=== PATIENT | female | born 1965 | race Caucasian/White ===

== ENCOUNTER 2017-09-30 18:18 | Emergency (ER) | payer BC ==
[~2017-09-30] VITALS: Ht 162.6 cm; Wt 78.5 kg
[~2017-09-30 18:18] MED LIST: ADDERALL 5 MG TA5 M1 PO; ADULT WAL-TUSS118 M1 PO; ASPIR 8181 MG PO; BACTRIM DS TAB1 EACH PO; DUONEB 2.5-0.5 M3 ML INH; ESKALITH300 MG PO; GLUCOPHAGE XR500 MG PO; HUMALOG100 UNIT/2; HUMALOG100 UNIT/2 SUBQ; HYDROCODONE-AP1 EAC6; HYDROCODONE-APA1 TA1 PO; IBUPROFEN 600600 M1; LANTUS SUBQ; LANTUS100 UNIT/M; LANTUS100 UNIT/M SUBQ; LIPITOR10 MG PO; LUCENTIS0.3 MG/0.0 IO; LYRICA 50 MG50 MG PO; LYRICA 75 MG CA75 MG; LYRICA 75 MG CA75 MG PO; LYRICA25 MG PO; MACROBID 100 M100 M2 PO; NAPROSYN500 MG PO; NORCO 5-325 TA1 EACH PO; NOVOLOG100 UNIT/1 SUBQ; ONDANSETRON HCL4 M2 PO; PERCOCET PO; PREDNISONE 10 M10 MG PO; PREDNISONE 20 M20 M1 PO; PROPRANOLOL 1010 MG PO; PROTONIX40 M4 PO; TAMIFLU75 MG PO; TESSALON PERLE100 MG PO; TRAZODONE HCL100 MG PO; VALIUM5 MG PO; VENTOLIN HFA 1818 GM INH; WELCHOL 625 MG625 M1 PO; XANAX 0.5 MG0.5 MG PO; ZOFRAN ODT4 MG PO; ZOLOFT100 MG PO
[2017-09-30] MEDS ORDERED: LIORESAL 10 MG10 MG PO (18:35)
[2017-09-30 19:12] LABS: INFLUENZA A ANTIGEN None Detected (None Detect); INFLUENZA B ANTIGEN None Detected (None Detect)
[2017-09-30] MEDS ORDERED: ACETAMINOPHEN-1 EAC1 PO (19:31)
[2017-09-30] MEDS ORDERED: ZPAK PO (19:31)
[2017-09-30] MEDS ORDERED: MEDROLDOSEPACK PO (19:31)
[2017-09-30] MEDS ORDERED: PROAIR HFA8.5 GM INH (19:31)
[2017-09-30] MEDS ORDERED: LEVAQUIN 500 M500 M2 PO (19:36)
[2017-09-30 19:40] VITALS: BP 129/79
[2018-06-21] MEDS ORDERED: KEFLEX500 M1 PO (08:24)
[2018-06-21] MEDS ORDERED: ACETAMINOPHEN-1 EAC1 PO (08:24)
[2018-06-21] MEDS ORDERED: ACYCLOVIR 400400 MG PO (08:24)
[2018-06-21] MEDS ORDERED: NORCO 5-325 TA1 EACH PO (08:24)
[2018-06-21] MEDS ORDERED: DIFLUCAN150 MG PO (08:24)
== END 2017-09-30 19:40 | disposition home or self-care (01) ==
LOC: M.ERS 18:18
PROVIDERS: Physician Assistant
DX: J20.9 Acute bronchitis, unspecified (principal); E11.9 Type 2 diabetes mellitus without complications; N30.90 Cystitis, unspecified without hematuria; J43.9 Emphysema, unspecified; J45.909 Unspecified asthma, uncomplicated; Z98.890 Other specified postprocedural states; Z88.0 Allergy status to penicillin; Z91.030 Bee allergy status; Z88.6 Allergy status to analgesic agent; Z88.1 Allergy status to other antibiotic agents

== ENCOUNTER 2017-10-10 17:14 | Inpatient (IN) | payer BC ==
[~2017-10-10] VITALS: Ht 162.6 cm; Wt 78.5 kg
[~2017-10-10 17:14] MED LIST changes: +ACETAMINOPHEN-1 EAC1 PO; +LEVAQUIN 500 M500 M2 PO; +LIORESAL 10 MG10 MG PO; +MEDROLDOSEPACK PO; +PROAIR HFA8.5 GM INH; +ZPAK PO
[2017-10-10 17:17] VITALS: BP 127/84
[2017-10-10 19:05] LABS: ABSOLUTE BASOPHILS 0.1 thou/uL (0.0-0.2); ABSOLUTE EOSINOPHILS 0.2 thou/uL (0.0-0.7); ABSOLUTE LYMPHOCYTES 3.8 thou/uL (0.8-5.3); ABSOLUTE MONOCYTES 0.5 thou/uL (0.0-1.2); ABSOLUTE NEUTROPHILS 4.4 thou/uL (1.6-8.1); BASOPHILS 0.9 %; EOSINOPHILS 1.7 %; HEMATOCRIT 44.3 % (37.0-47.0); HEMOGLOBIN 14.4 gm/dL (12.0-15.0); LYMPHOCYTES 42.5 %; MCH 29.3 pg (26.0-34.0); MCHC 32.6 g/dL (28.0-37.0); MCV 89.8 fL (80.0-100.0); MONOCYTES 5.9 %; NUCLEATED RBCS 0 /100WBC; PLATELET COUNT* 327 thou/uL (150-400); RBC 4.94 mil/uL (4.20-5.00); RDW-CV 14.4 % (10.5-14.5)
[2017-10-10 19:34] LABS: ANION GAP 9 mmol/L (7-16); BUN 17 mg/dL (7-18); CALCIUM 8.8 mg/dL (8.5-10.1); CHLORIDE 101 mmol/L (98-107); CO2 26 mmol/L (21-32); CREATININE 0.8 mg/dL (0.6-1.3); GLUCOSE 213 mg/dL (70-99); POTASSIUM 3.4 mmol/L (3.5-5.1); SODIUM 136 mmol/L (136-145)
[2017-10-10 19:50] LABS: ALBUMIN 3.5 g/dL (3.4-5.0); ALKALINE PHOSPHATASE 53 U/L (46-116); SGOT 23 U/L (15-37); SGPT 31 U/L (30-65); TOTAL PROTEIN 7.1 g/dL (6.4-8.2); TROPONIN-I LEVEL <0.06 ng/mL (<0.06)
[2017-10-10 20:10] VITALS: BP 127/74
[2017-10-10 21:06] VITALS: BP 128/85
[2017-10-10 23:30] VITALS: BP 103/70
[2017-10-11] VITALS: BP 122/67
[2017-10-11 02:15] LABS: HEMATOCRIT 40.8 % (37.0-47.0); HEMOGLOBIN 13.5 gm/dL (12.0-15.0); MCH 29.4 pg (26.0-34.0); MCHC 33.1 g/dL (28.0-37.0); MCV 88.8 fL (80.0-100.0); MPV 8.4 fl. (7.2-11.1); RBC 4.6 mil/uL (4.20-5.00); RDW-CV 14.3 % (10.5-14.5); WBC 9.7 thou/uL (4.0-11.0)
[2017-10-11 02:28] LABS: ALBUMIN 3.2 g/dL (3.4-5.0); CALCIUM 8.7 mg/dL (8.5-10.1); CREATININE 0.8 mg/dL (0.6-1.3); POTASSIUM 3.5 mmol/L (3.5-5.1); TOTAL BILIRUBIN 0.8 mg/dL (<0.1-1.0); TOTAL PROTEIN 6.1 g/dL (6.4-8.2)
--- NOTE | 2017-10-11 03:54 | NUR ---
PT TO FLOOR AT 2112 ASSUMED CARE. PT HAS CHRONIC PAIN AND GIVEN NORCO FOR PAIN WITH RELIEF. PT A&O X4 CALM COOPERITVE. PT SR ON THE MONITOR. NO FLUID. O2 97 RA. PT REPORTS LEFT SIDE FACE NUMBNESS. VITALS WNL. REPORTS BM 10/09/17. PLAN IS TO HAVE LABS IN AM, MRI SERIES, AND ECCO. VITALS WNL. PT REPORTS UNABLE TO GET RESTFULL SLEEP AT HS. PT ADLIB. HOURLY ROUNDING FOR SAFETY.
[2017-10-11 04:00] VITALS: BP 102/64
[2017-10-11 07:30] VITALS: BP 104/66
[2017-10-11 11:38] VITALS: BP 134/89
--- NOTE | 2017-10-11 11:44 | EKG ---
[place] [address] ELECTROCARDIOGRAM REPORT Name: CORY CARUSO Room: [address] ADM IN ..#: [id number] Admission: 10/10/17 Attend Phys: Claudia Mcdermott Discharge: Date of : 63 Report #: [id number] THIS REPORT FOR: //name// [facility] ED Test Date: 2017-10-10 Test Time: 17:16:46 Pat Name: CORY CARUSO Department: Room: [facility] Gender: F Project Scientist: : 1965 Requested By: Tete Myers Order Number: [id number] MD: Malcolm Sneed Measurements Intervals [place] Rate: 107 P: 34 SD: 138 QRS: -2 QRSD: 90 T: 3 QT: 342 QTc: 457 Interpretive Statements Sinus tachycardia nonspecific st changes Compared to ECG 06/21/2017 20:46:36 Sinus rhythm no longer present Electronically Signed On 10-11-2017 11:44:42 [employer] by Malcolm Sneed [email or web address] <ELECTRONICALLY SIGNED> By: Malcolm Sneed MD, [facility] 10/11/17 1144 15 15 Malcolm Sneed MD, [facility] /EPI
--- NOTE | 2017-10-11 11:57 | NUR ---
CM ASSESSMENT: Pt is A&O. Resides at home with her and children. Independent with ADLs. No DME. No hx of HH or SNF. Goal is to return home once medially stable. Following.
--- NOTE | 2017-10-11 17:15 | CARDNUC ---
[place] [address] CARDIAC NUCLEAR IMAGING REPORT Name: CORY CARUSO Room: [address] IN [facility]#: [id number] Admission: 10/10/17 Attend Phys: Robin Ramos Discharge: Date of : 63 Date of Service: 10/11/17 1714 Report #: [id number] THIS REPORT FOR: //name// APPROVED REPORT Exam: Nuclear Stress Test Indication: Chest pain Patient Location: In-Patient Room #: 207 Stress Tech: Sadia Villagomez Stress Nurse: Gayathri Correa RN Ht: 5 ft 4 in Wt: 173 lbs BSA: 1.84 m2 BMI: 29.69 Medical History Medical History: aortic valve regurgitation Medications: propanolol, aspirin, atovastatin, enoxaparin Allergies: penicillin, erythromycin, cefuroxime,hydromorphone Cardiac Risk Factors: age, pvd, dm Meds Held (24 hrs): propanolol since 1700 10/10/17 Stress Test Details Stress Test: Pharmacologic stress testing performed using 0.4 mg of regadenoson per 5 mL given IV over 10 seconds. Reason for pharmacologic stress test: physical limitation. HR Resting HR: 85 bpm Max Heart Rate (APMHR): 167 bpm Max HR Achieved: 107 bpm Target HR (85% APMHR): 141 bpm % of APMHR: 64 Recovery HR: 112 bpm BP Resting BP: 100/66 mmHg Max BP: 148/101 mmHg ECG Resting ECG: Sinus Rhythm, normal EKG Stress ECG: Sinus Tachycardia ST Change: None Arrhythmia: None Recovery ECG: Sinus Rhythm, normal EKG Recovery ST Change: None Recovery Arrhythmia: [place] [address] CARDIAC NUCLEAR IMAGING REPORT Name: CORY CARUSO Room: [address]#: [id number] Admission: 10/10/17 Attend Phys: Robin Ramos Discharge: Date of : 63 Date of Service: 10/11/17 1714 Report #: [id number] Clinical Reason for Termination: Completed protocol Exercise duration: 0 min sec Exercise capacity: 1 METs Functional Aerobic Impairment 62% The patient had some atypical gastrointestinal symptoms with Lexiscan infusion but no chest pain. Nurse Comments pt had nausea and lower gi problems, resolved wtih caffeine Stress ECG Conclusion The baseline 12 elect cardiac exam showed sinus rhythm without significant ST segment abnormality. EKGs obtained during and post Lexiscan infusion showed sinus rhythm and sinus tachycardia with no significant ST or T wave changes when compared to baseline. There were no stress-induced arrhythmias. NM EXAM: Myocardial Perfusion REST/STRESS Imaging Protocol: Rest Tc-99m/Stress Tc-99m 1 day Resting Data Rest SPECT myocardial perfusion imaging was performed in supine position 30 minutes following the intravenous injection of 12.0 mCi of Tc-99m Sestamibi. Time of rest injection: 1355 Time of rest imagin The images were gated to evaluate regional wall motion and calculate left ventricular ejection fraction. Administration Route: IV Administration Site: Left AC Pharmacologic Stress Pharmacologic stress test was performed by injecting Regadenoson 0.4 mg IV push followed by the intravenous injection of 34.7 mCi of Tc-99m Sestamibi. Time of stress injection: 1530 Time of stress imagin Administration Route: IV Administration Site: Left AC Heart Rate at time of stress injection: 107 bpm. Gated Stress SPECT was performed 40 minutes after stress injection. The images were gated to evaluate regional wall motion and calculate left [place] [address] CARDIAC NUCLEAR IMAGING REPORT Name: CORY CARUSO Room: [address]#: [id number] Admission: 10/10/17 Attend Phys: Robin Ramos Discharge: Date of : 63 Date of Service: 10/11/17 1714 Report #: [id number] Prone imaging was performed. Study Quality Study: Good Artifact: No artifact Study Data At rest, the left ventricular ejection fraction was 69%.. Post stress, the left ventricular ejection was C5%.. TID = 1.23. Perfusion Normal left ventricular perfusion. Wall Motion Normal left ventricular wall motion. Nuclear Conclusion ECG Findings: negative for ischemia Clinical Findings: negative for ischemia Nuclear Findings: negative for ischemia Exercise Capacity: not assessed Left Ventricular Function: normal Risk Study: low Myocardial perfusion images show no defect to suggest infarct or ischemia. Left ventricular systolic function is normal on gated studies. This is a low risk study. <Conclusion> The baseline 12 elect cardiac exam showed sinus rhythm without significant ST segment abnormality. EKGs obtained during and post Lexiscan infusion showed sinus rhythm and sinus tachycardia with no significant ST or T wave changes when compared to baseline. There were no stress-induced arrhythmias. <ELECTRONICALLY SIGNED> By: Russ Blackwood MD, FACC 10/11/17 1714 13 171 Russ Blackwood MD, FACC /INF
--- NOTE | 2017-10-11 17:23 | 2DMMODE ---
[place] [address] 2 D/M-MODE ECHOCARDIOGRAM Name: CORY CARUSO Room: [address] IN [facility]#: [id number] Admission: 10/10/17 Attend Phys: Robin Ramos Discharge: Date of : 63 Date of Service: 10/11/17 1722 Report #: [id number] THIS REPORT FOR: //name// APPROVED REPORT Study performed: 10/11/2017 15:26:23 EXAM: Comprehensive 2D, Doppler, and color-flow Echocardiogram Patient Location: In-Patient Room #: 207 Status: routine BSA: 1.83 HR: 102 bpm BP: 102/64 mmHg Rhythm: NSR Other Information Study Quality: Good Indications Chest Pain 2D Dimensions LVEF(%): 63.39 (>50%) IVSd: 11.40 (7-11mm) LVOT Diam: 18.30 (18-24mm) LVDd: 43.50 mm PWd: 9.41 (7-11mm) Ascending Ao: 34.56 (22-36mm) LVDs: 28.65 (25-40mm) Aortic Root: 32.65 mm Pollack's LVEF: 63.39 % Volumes Left Atrial Volume (Systole) LA ESV Index: 15.20 mL/m2 Aortic Valve AoV Peak David.: 1.41 m/s AO Peak Gr.: 7.97 mmHg LVOT Max P.58 mmHg AO Mean Gr.: 4.23 mmHg LVOT Mean P.22 mmHg LVOT Max V: 1.18 m/s AO V2 VTI: 25.13 cm LVOT Mean V: 0.67 m/s QUE (VTI): 2.28 cm2 LVOT V1 VTI: 21.79 cm Mitral Valve E/A Ratio: 0.74 [place] [address] 2 D/M-MODE ECHOCARDIOGRAM Name: CORY CARUSO Room: [address] IN ..#: [id number] Admission: 10/10/17 Attend Phys: Robin Ramos Discharge: Date of : 63 Date of Service: 10/11/17 1722 Report #: [id number] MV Decel. Time: 122.07 ms MV E Max David.: 0.91 m/s MV PHT: 35.40 ms MVA (PHT): 6.21 cm2 TDI E/Lateral E': 10.11 Lateral E' David.: 0.09 m/s Pulmonary Valve PV Peak David.: 0.91 m/s PV Peak Gr.: 3.32 mmHg Left Ventricle The left ventricle is normal size. There is normal LV segmental wall motion. There is normal left ventricular wall thickness. Left ventricular systolic function is normal. LVEF is 60-65%. Grade I - abnormal relaxation pattern. Right Ventricle The right ventricle is normal size. The right ventricular systolic function is normal. Atria The left atrium size is normal. The right atrium size is normal. Aortic Valve The aortic valve is normal in structure. No aortic regurgitation is present. There is no aortic valvular stenosis. Mitral Valve The mitral valve is normal in structure. There is no mitral valve regurgitation noted. No evidence of mitral valve stenosis. Tricuspid Valve The tricuspid valve is normal in structure. There is no tricuspid valve regurgitation noted. Pulmonic Valve The pulmonary valve is normal in structure. There is no pulmonic valvular regurgitation. Great Vessels The aortic root is normal in size. IVC is normal in size and collapses with >50% [place] [address] 2 D/M-MODE ECHOCARDIOGRAM Name: CORY CARUSO Room: [address] IN [facility]#: [id number] Admission: 10/10/17 Attend Phys: Robin Ramos Discharge: Date of : 63 Date of Service: 10/11/17 1722 Report #: [id number] Pericardium There is no pericardial effusion. <Conclusion> The left ventricle is normal size. There is normal left ventricular wall thickness. Left ventricular systolic function is normal. LVEF is 60-65%. Grade I - abnormal relaxation pattern. <ELECTRONICALLY SIGNED> By: Russ Blackwood MD, FACC 10/11/171721 21 21 Russ Blackwood MD, FACC /INF
[2017-10-11 20:10] VITALS: BP 127/74
[2017-10-12] VITALS (9 sets, daily range): BP systolic 81–132; BP diastolic 47–74
[2017-10-12 00:58] LABS: URINE BILIRUBIN NEGATIVE (Negative); URINE BLOOD NEGATIVE (Negative); URINE CLARITY CLEAR; URINE COLOR YELLOW; URINE GLUCOSE-RANDOM 2+ (Negative); URINE KETONES TRACE (Negative); URINE LEUKOCYTES-REFLEX NEGATIVE (Negative); URINE NITRITE-REFLEX NEGATIVE (Negative); URINE PROTEIN NEGATIVE (Negative); URINE UROBILINOGEN 0.2 E.U./dl (0.2-1.0)
[2017-10-12 02:12] LABS: EBNA-1 IgG >600.0 U/mL (0.0-17.9); EBV EA IgG <9.0 U/mL (0.0-8.9); EBV VCA IgM <36.0 U/mL (0.0-35.9)
--- NOTE | 2017-10-12 06:48 | NUR ---
A&O X4 CALM COOPERITVE. ADLIB. SR ON THE MONITOR. RA. VITALS WNL. HOURLY ROUNDING FOR SAFETY
--- NOTE | 2017-10-12 12:08 | NUR ---
RECEIVED PT CARE 0700. PT IS ALERT AND ORIENTED X4. FORGETFUL AT TIMES. ORTHOSTATICS POSTIVE. DR CARUSO AWARE. NEW ORDERS FOR IVF RECEIVED. PLAN TO DC LOPEZ CATHETER TODAY. PT UP IN ROOM WITH BATHROOM PRIVILEDGES. GAIT IS STEADY. AM ASSESSMENT CHARTED. MEDS PER MAR. TELE DISCONTINUED TODAY, MEDICAL STATUS. HOLDING OFF ON DC TODAY, PLANNING FOR POTENTIAL DC TOMORROW IF STABLE. CALL LIGHT WITHIN REACH. WILL CONTINUE TO MONITOR.
--- NOTE | 2017-10-12 16:54 | NUR ---
REPORT CALLED TO RAFAEL OLIVARES ON 3W. PATIENT TRANSFERRING TO 308. ALL BELONGINGS PACKED AND LEAVING WITH PATIENT.
--- NOTE | 2017-10-12 18:20 | NUR ---
ASSUMED CARE OF PATIENT AT 1730. REPORT RECEIVED FROM GENARO. PATIENT IS RESTING IN BED. PATIENT DENIES ANY PAIN. PATIENT DENIES ANY NEEDS. PATIENT HAS FLUIDS INFUSING ORDERED. CALL LIGHT WITHIN REACH. WILL CONTINUE TO MONITOR.
[2017-10-12 20:18] LABS: INFLUENZA A ANTIGEN None Detected (None Detect); INFLUENZA B ANTIGEN None Detected (None Detect)
[2017-10-13 01:17] VITALS: BP 117/69
[2017-10-13 04:45] LABS: HEMATOCRIT 35.7 % (37.0-47.0); HEMOGLOBIN 12.2 gm/dL (12.0-15.0); MCHC 34.1 g/dL (28.0-37.0); MCV 87.9 fL (80.0-100.0); MPV 8.5 fl. (7.2-11.1); RBC 4.06 mil/uL (4.20-5.00); RDW-CV 13.8 % (10.5-14.5); WBC 10.1 thou/uL (4.0-11.0)
[2017-10-13 05:11] LABS: CALCIUM 8.6 mg/dL (8.5-10.1); CREATININE 0.8 mg/dL (0.6-1.3); POTASSIUM 4.3 mmol/L (3.5-5.1)
--- NOTE | 2017-10-13 06:58 | NUR ---
PT CO NOT BEING ABLE TO VOID AFTER LOPEZ REMOVAL AT START OF SHIFT, BLADDER SCAN 470, DR NOTIFIED AND ORDERS RECEIVED FOR STRAIGHT CATH PRN X2. STRAIGHT CATH RETURNED 450MLS YELLOW URINE AT HS. 0500 PT CO NOT BEING ABLE TO VOID, BLADDER SCAN 950, STRAIGHT CATH PERFORMED RETURNING 1000MLS LITE YELLOW URINE. HS ACCUCHECK 198, LEVEMEIR GIVEN. PT RECEIVING HYDROCODONE FOR GENERALIZED PAIN, ZOFRAN X1 FOR NAUSEA. LFA IVF INFUSING PER PUMP. PT UP AD LOUIE IN ROOM, CO DIZZINESS WHEN AMBULATING AND INSTRUCTED TO ASK FOR ASSISTANCE, BED ALARM ON FOR SAFETY. ABLE TO USE CALL LITE AND MAKE NEEDS KNOWN.
[2017-10-13 08:30] VITALS: BP 112/71
[2017-10-13 08:32] VITALS: BP 89/63
[2017-10-13 08:34] VITALS: BP 65/40
[2017-10-13 15:30] VITALS: BP 111/68
--- NOTE | 2017-10-13 18:13 | NUR ---
RECIEVED PATIENT AT 1500. PATIENT A&OX4, ROOM AIR, IV LEFT FOREARM FLUIDS INFUSSING. UP WITH ASSISTX1 STEADY GAIT. C/O GENERALIZED WEAKNESS, RELIEF WITH MEDICATION. ORTHOSTATIC HYPOTENSION NOTED, INSTRUCTED TO CALL FOR ASSISTANCE WITH TRANSFERS AND AMBULATION. NO OTHER CONCERNS AT THIS TIME. APPROPRAITE AND COOPORATIVE WITH CARE.
[2017-10-13 19:46] VITALS: BP 99/65
[2017-10-13 23:07] LABS: CMV IgM Abs <30.0 AU/mL (0.0-29.9)
--- NOTE | 2017-10-14 06:42 | NUR ---
ASSESSMENT COMPLETE. PT SLEPT PART OF THE NIGHT. PT REPORTS PAIN IN LOWER LEFT ABDOMEN FROM "POLYCYSTIC OVARIES". PAIN MEDICATION AND KPAD GIVEN, RELIEF REPORTED. PT DENIES N/V. PT IS ON ROOM AIR WITH ADEQAUTE SATS. PT HAS IV FLUIDS INFUSING. SKIN W/D/I. PT HAD RETENTION DURING THE NIGHT, BLADDER SCAN THIS AM SHOWED GREATER THAN 800ML. PT STRAIGHT CATH AND HAD 865ML OUTPUT. PT IS UP WITH STANDBY ASSIST. PT TURNS SELF IN BED. PT IS FALL RISK, BED ALARM ON. SEE ASSESSMENT AND VITALS FOR OTHER DETAILS. WILL CONTINUE TO MONITOR
[2017-10-14 07:30] VITALS: BP 118/78
--- NOTE | 2017-10-14 16:40 | NUR ---
PATIENT A&OX4, ROOM AIR, IV LEFT WRIST FLUIDS INFUSSIGN. UP WITH STAND BY ASSISTX1. ORTHOSTATIC HYPOTENSION NOTED, DIZZINESS WITH ACTIVITY. C/O LOWER ABD/PELVIC PAIN. PARTIAL RELIEF WITH MEDICATION. GYNOCOLOGY CONSULT, WILL SEE PATIENT TOMORROW. NO OTHER CONCERNS AT THIS TIME. APPROPRIATE AND COOPORATIVE WITH CARE.
[2017-10-14 18:49] VITALS: BP 98/57
[2017-10-15] VITALS: BP 116/70
--- NOTE | 2017-10-15 05:58 | NUR ---
PATIENT SLEPT WELL DURING THIS SHIFT. PT CALLED AT APPROX 4AM SAYING SHE HAD NOT BEEN ABLE TO VOID ALL NIGHT. APPROX 750ML OF YELLOW URINE NOTED IN HAT IN TOILET. WAS NOTED BY PALPATION THAT BLADDER FELT VERY FULL. PT STRAIGHT CATHED AND 1000ML CLEAR YELLOW URINE WAS DRAINED. PT STATED SHE FELT MUCH BETTER AND WENT BACK TO SLEEP. PT REQUESTED PAIN MEDICATION X3 AND RECEIVED TYLENOL W/CODEINE X2 AND HYDDROCODONE 2 TABS X1. PT ABLE TO RETURNN TO SLEEP AFTERWARDS. PT WITH FLUIDS INFUSING PER DR ORDER. PT IN DROPLET ISOLATION PENDING H1N1 RESULTS. PT WITH 2100 BLOOD SUGAR OF 234. LEVEMIR 36 UNITS AND REGULAR 10 UNITS GIVEN. PT HAD SEVERAL SNACKS THROUGHOUT THE NIGHT OF PUDDING, ICE CREAM AND JUICES. PT ASKED FOR SNACK TOWARDS AM AND WAS SUGGESTED THAT SHE WAIT TILL AM BLOOD SUGAR WAS CHECKED BECAUSE SHE HAD SEVERAL SNACKS ALREADY. PT IN AGREEMENT. FREQUENTLY USED ITEMS AND CALL LIGHT WITHIN REACH. SIDERAILS UPX2. WILL CONTINUE TO MONITOR.
[2017-10-15 07:30] VITALS: BP 121/74
[2017-10-15 17:00] VITALS: BP 113/70
[2017-10-15 19:41] VITALS: BP 116/70
--- NOTE | 2017-10-15 20:25 | NUR ---
PATIENT A&OX4, CAN BE FORGETFUL AT TIMES. ON ROOM AIR, IV LEFT WRIST FLUIDS INFUSSING. IV SITE CHANGE; STILL LEFT WRIST. PATIENT IS UP WITH STAND BY ASSIST, DUE TO ORTHOSTATIC HYPOTENSION, STEADY GIAT. C/O LOWER ABD/PELVIC PAIN, PARTIAL RELIEF WITH MEDICATIONS. C/O URINARY RETENTION, BLADDER SCANNED AT 1230 WITH 820ML IN BLADDER. WAS ABLE TO STRIAGHT CATH PT PRODUCING 840ML OF URINE. PATIENT FEELS RELIEF. PATIEN UNABLE TO URINATE AT 1430, EXPERIANCING RETENTION. LOPEZ CATHETER PLACED AT THIS TIME. PATIENT STATES SHE HAS MUCH RELIEF WITH LOWER ABD/PELVIC AREA. PT C/O CHEST PAIN AT 1700, EKG COMPLETED, NORMAL SINUS. NO OTHER CONCERNS AT THIS TIME. APPROPRIATE AND COOPORATIVE WITH CARE.
--- NOTE | 2017-10-16 05:59 | NUR ---
ASSESSMENT COMPLETE. PT DID NOT SLEEP MUCH TONIGHT, PT REPORTS ABDOMINAL PAIN. PRN PAIN MEDS AND KPAD IN PLACE. PT REPORTS PAIN IS MUCH BETTER SINCE LOPEZ WAS PLACES. PT REPORTS NEW ONSET OF DIARRHEA TODAY. PT DOES HAVE HX OF CDIFF, WILL SEND SAMPLE FROM NEXT STOOL. PT IS ON ROOM WITH WITH ADEQUATE SATS. PT HAS IV FLUIDS INFUSING. PT CONTINUES TO GET DIZZY WHEN STANDING, FALL RISK WITH BED ALARM ON. PT HAS LOPEZ IN PLACE WITH ADEQAUTE OUTPUT. PT IS IN ISOLATION FOR PENDING H1N1 AND CDIFF. PT TURNS SELF IN BED DURING THE NIGHT. SEE ASSESSMENT AND VITALS FOR OTHER DETAILS. CALL LIGHT WITHIN REACH, WILL CONTINUE TO MONITOR
[2017-10-16 08:00] VITALS: BP 90/55
[2017-10-16 10:15] VITALS: BP 106/73
[2017-10-16 16:00] VITALS: BP 100/56
--- NOTE | 2017-10-16 16:38 | EKG ---
[place] [address] ELECTROCARDIOGRAM REPORT Name: CORY CARUSO Room: [address] ADM IN M.R.#: [id number] Admission: 10/10/17 Attend Phys: Claudia Mcdermott Discharge: Date of : 63 Report #: [id number] THIS REPORT FOR: //name// [facility] Test Date: 2017-10-15 Test Time: 17:06:52 Pat Name: CORY CARUSO Department: Room: [address] Gender: F Prototype Model Maker: : 1965 Requested By: Robin Ramos Order Number: [id number] Silvia MD: Malcolm Sneed Measurements Intervals [place] Rate: 85 P: 48 MD: 140 QRS: 16 QRSD: 86 T: 20 QT: 389 QTc: 463 Interpretive Statements Sinus rhythm Compared to ECG 10/10/2017 17:16:46 Sinus tachycardia no longer present ST (T wave) deviation no longer present Electronically Signed On 10-16-2017 16:38:01 DIGITAL MEDIA COORDINATOR by Malcolm Sneed [email or web address] <ELECTRONICALLY SIGNED> By: Malcolm Sneed MD, [facility] 10/16/17 1638 05 05 Malcolm Sneed MD, [facility] /EPI
[2017-10-16 16:41] VITALS: BP 106/59
--- NOTE | 2017-10-16 17:53 | NUR ---
PATIENT HAS BEEN A/O X 4 THIS SHIFT. MEDICATED FOR GENERALIZED PAIN THIS SHIFT WITH LITTLE RELIEF. PATIENT IVF SALINE LOCKED. PATIENT UP WITH ASSIST. SEEN BY CARDIOLOGY THIS SHIFT AND STARTED ON MIDODRINE FOR LOW BP. PATIENT STARTED ON LIDODERM PATCH THIS SHIFT FOR PAIN. FALL PRECAUTIONS IN PLACE. HOULRY ROUNDING COMPLETED. CALL LIGHT WITHIN REACH. WILL CONTINUE WITH PLAN OF CARE.
[2017-10-16 23:37] VITALS: BP 101/64
[2017-10-17 02:06] LABS: ADENOVIRUS Negative (Negative); INFLUENZA A Negative (Negative); INFLUENZA B Negative (Negative); METAPNEUMOVIRUS Negative (Negative); PARAINFLUENZA 1 Negative (Negative); PARAINFLUENZA 2 Negative (Negative); PARAINFLUENZA 3 Negative (Negative); RHINOVIRUS Negative (Negative); RSV A Negative (Negative); RSV B Negative (Negative)
[2017-10-17 05:01] LABS: HEMATOCRIT 32.6 % (37.0-47.0); MCHC 33.7 g/dL (28.0-37.0); MCV 89.1 fL (80.0-100.0); MPV 9.5 fl. (7.2-11.1); RBC 3.65 mil/uL (4.20-5.00); RDW-CV 14.5 % (10.5-14.5)
[2017-10-17 05:06] LABS: ALBUMIN 2.5 g/dL (3.4-5.0); CALCIUM 8.3 mg/dL (8.5-10.1); POTASSIUM 4.6 mmol/L (3.5-5.1); TOTAL BILIRUBIN 0.6 mg/dL (<0.1-1.0); TOTAL PROTEIN 5.2 g/dL (6.4-8.2)
--- NOTE | 2017-10-17 05:49 | NUR ---
PATIENT SLEPT PART OF THE NIGHT. PATIENT WAS STILL COMPLAINING OF PAIN AT BEGINNING OF SHIFT WANTING SOMETHING ELSE FOR PAIN. DR. ECKERT WAS NOTIFIED NO NEW ORDERS WERE GIVEN. PATIENT WAS GIVEN SCHEDULED AND PRN PAIN MEDS WITH SOME RELIEF. IV REMAINS SALINE LOCKED. PATIENT IS POSSIBLY GOING HOME TODAY. WILL CONTINUE TO MONITOR.
[2017-10-17 08:25] VITALS: BP 98/58
--- NOTE | 2017-10-17 13:23 | NUR ---
Nutrition: Pt assessed for LOS. Admitted with chest pain. RX: insulin, CHO controlled diet. Wt: 173#. B12 injection given. BG 178, albumin 2.5. Per Progress note, pt will likely discharge tomorrow. Appears at low nutrition risk.
--- NOTE | 2017-10-17 13:24 | NUR ---
SPOKE WITH DR CARUSO REGARDING PATIENT'S REQUEST TO BE TRANSFERRED TO . CASE MANAGMENT CALLING TO SEE IF PATIENT CAN BE ACCEPTED. PATIENT AND SPOUSE INFORMED.
--- NOTE | 2017-10-17 13:25 | NUR ---
PATIENT'S LOPEZ CATHETER REMOVED AT 1100. PATIENT ATTEMPTED TO URINATE. UNABLE TO URINATE, BLADDER SCANNED AND SHOWED 455ML. MELL WITH UROLOGY CALLED AND ORDERS RECEIVED. PATIENT INFORMED.
--- NOTE | 2017-10-17 15:15 | NUR ---
SW received notification that pt was requesting a transfer to [facility]. SW called [facility] transfer line [phone] at 11:58 am and provided information as well as nurse answered questions with their triage nurse. SW faxed information requested and radiology uploaded images to [facility]. SW called at 3:10 pm to find out status of transfer and was told that the triage team was still reviewing and working on possibility of transfer and that they would call back with whether they will be able to accept pt transfer or not.
[2017-10-17 16:00] VITALS: BP 109/60
--- NOTE | 2017-10-17 17:17 | CON ---
[address] [address] CONSULTATION Name: CORY CARUSO Room: [address] IN M.R.#: [id number] Admission: 10/10/17 Attend Phys: Claudia Mcdermott Discharge: Date of : 63 Report #: [id number] THIS REPORT FOR: //name// CC: Adam Sweet DATE OF SERVICE: 10/16/2017 PRIMARY CARE PHYSICIAN: Dr. Adam Berry. HISTORY OF PRESENT ILLNESS: The patient is a 52-year-old white female who I was asked to see in the hospital today after she was noted to be orthostatic. The patient states that she has seen a principal examiner in the past. She had a previous echocardiogram showing evidence of aortic insufficiency. She is currently not seeing a principal examiner. The patient has had multiple hospitalizations here at [facility]. She was actually admitted here in last May with abdominal pain, was felt to have a UTI. She was admitted at this time on 10/10, which is now almost a week ago. She complained of some chest pain and weak. She has seen multiple consultants over the past week including a Gynecology. She has had problems with incontinence. She saw Neurology. She complained of some facial numbness. It is unclear if she had a neurologic diagnosis. Recently, the patient was noted to be orthostatic. I was asked to see her for further evaluation and treatment. She claims she actually has a history of dementia. She does have occasional chest pain, although it is nonexertional. She has had no significant shortness of breath. She will note episodes where heart rate will increase. Recently, she has felt lightheaded. I was asked to see her for further evaluation and treatment. PAST MEDICAL HISTORY: Significant for appendectomy, tonsillectomy, cholecystectomy, breast reduction. She has never been . She is currently on a menstrual period. She does have a history of diabetes. MEDICATIONS ON ADMISSION: Consist of albuterol inhaler, codeine, Lipitor, aspirin, propranolol, lithium, insulin, baclofen. ALLERGIES: SHE IS INTOLERANCE TO MULTIPLE MEDICATIONS, CLARITHROMYCIN, PENICILLIN, HYDROMORPHONE. FAMILY HISTORY: Mother had hypertension. SOCIAL HISTORY: She is . She and her live in [place]. No smoking or alcohol abuse. REVIEW OF SYSTEMS: She apparently has had a TIA in the past. She has been diagnosed with asthma. She uses inhaler occasionally. [place] [address] CONSULTATION Name: CORY CARUSO Room: [address]#: [id number] Admission: 10/10/17 Attend Phys: Claudia Mcdermott Discharge: Date of : 63 Report #: [id number] ulcer disease, liver disease, kidney disease, cancer. PHYSICAL EXAMINATION: GENERAL: Revealed a young white female lying in bed. She appeared in no distress. VITAL SIGNS: Recently, she had blood pressure 160/79, sitting 121/74, standing all the way down to 65. HEENT: She is anicteric. Conjunctivae are pink. Mucous members moist. NECK: Veins do not appear distended. CHEST: Clear to auscultation. CARDIAC: Regular rate and rhythm, no murmur. ABDOMEN: Soft. EXTREMITIES: Had no edema. Dorsalis pedis pulse 2+ bilaterally. SKIN: Cool and dry. NEUROLOGIC: Nonfocal. LABORATORY DATA: ECG shows a sinus rhythm. There is no ST or T-wave change noted. She had a workup that included an echocardiogram done last week that showed normal heart size and clear lung ruggiero. No pericardial effusion. There is no aortic insufficiency. No mitral regurgitation. She actually had a nuclear stress test last week because of her chest pain that showed normal perfusion with no evidence of ischemia and normal ejection fraction. Her lab work: Sodium 128, potassium 4.3, BUN 11, creatinine 0.8, glucose 198. Her albumin is 3.2. Troponin 0.06. TSH 1.4. White blood cell count 10.1, hemoglobin is 12.2. IMPRESSION AND RECOMMENDATIONS: 1. Orthostatic hypotension. The patient does not appear to be dehydrated. Possible autonomic dysfunction. Recommend starting midodrine. 2. Chronic pelvic pain. The patient evaluated by Gynecology. 3. Memory loss. 4. Diabetes. <ELECTRONICALLY SIGNED> By: Malcolm Sneed MD, [facility] 10/17/17 1717 1030 2105Dawalker Sneed MD, FACC /nt
--- NOTE | 2017-10-17 19:47 | NUR ---
PATIENT HAS BEEN A/O X 4 THIS SHIFT. MEDICATED FOR GENERALIZED PAIN WITH SCHEDULED TRAMADOL AND GIVEN FENTANYL X 1 DOSE TODAY. CONTINUES ON SCHEDULED ZOFRAN. PATIENT FAILED VOIDING TRIAL, PVR CALLED TO MELL WITH UROLOGY AND ORDERS NOTED TO REPLACE LOPEZ. PATIENT SALINE LOCK PATENT. BLOOD SUGARS MONITORED AND INSULIN ADJUSTED THIS SHIFT PER DR CARUSO. PATIENT CONTINUES TO BE ORTHOSTATIC WTIH BLOOD PRESSURE, MIDODRINE DOSE ADJUSTED. TO STAY THE NIGHT WITH PATIENT. NEW ORDERS NOTED FOR CM TO HELP WITH DISCHARGE PLANNING. HOULRY ROUNDING COMPLETED. CALL LIGHT WITHIN REACH. WILL CONTINUE WITH PLAN OF CARE.
[2017-10-18 03:59] LABS: HEMATOCRIT 34.1 % (37.0-47.0); HEMOGLOBIN 11.5 gm/dL (12.0-15.0); MCHC 33.6 g/dL (28.0-37.0); MCV 89.2 fL (80.0-100.0); MPV 9.2 fl. (7.2-11.1); RBC 3.83 mil/uL (4.20-5.00); RDW-CV 14.5 % (10.5-14.5); WBC 8.5 thou/uL (4.0-11.0)
[2017-10-18 04:14] LABS: ALBUMIN 2.7 g/dL (3.4-5.0); CALCIUM 8.7 mg/dL (8.5-10.1); CREATININE 0.9 mg/dL (0.6-1.3); MAGNESIUM 1.7 mg/dL (1.8-2.4); TOTAL BILIRUBIN 0.4 mg/dL (<0.1-1.0)
--- NOTE | 2017-10-18 07:21 | NUR ---
PATIENT SLEPT PART OF THE NIGHT. IV REMAINS SALINE LOCKED. PATIENT WAS GIVEN HYDROCODONE TWICE FOR PAIN WITH SOME RELIEF. PATIENT IS POSSIBLY GOING TO [facility] TODAY. WILL CONTINUE TO MONITOR.
[2017-10-18 08:11] VITALS: BP 111/69; BP 150/98; BP 97/55
--- NOTE | 2017-10-18 10:04 | NUR ---
SW received consult/order from Dr Sneed regarding possible SNU placement. SW discussed this with pt and she wants to go to SNF for a while if possible. Pt gave SW a number for her insurance if needed. SW faxed a referral to pt preference [facility] and will await response as well as dc orders and recommendations from Dr Chin.
[2017-10-18] MEDS ORDERED: LIDOPATCH1 EACH TOP (12:30)
[2017-10-18] MEDS ORDERED: NORCO 5-325 TA1 EACH PO (12:30)
[2017-10-18] MEDS ORDERED: MIDODRINE HCL 55 M1 PO (12:30)
[2017-10-18] MEDS ORDERED: HUMULIN R100 UNIT/M SUBQ (12:30)
[2017-10-18] MEDS ORDERED: LEVEMIR SUBQ (12:30)
[2017-10-18] MEDS ORDERED: XANAX 0.5 MG0.5 MG PO (12:30)
[2017-10-18 13:39] VITALS: BP 97/55
--- NOTE | 2017-10-18 17:23 | NUR ---
PT IS ALERT AND ORIENTED X4. PT WAITING FOR INSURANCE ON DC TO S[facility]IOR LIVING FACILITY, THE [facility]. PT'S ORTHOSTATIC HYPOTENSION VITALS WERE GOOD, WENT FROM 97/55 LYING DOWN TO 150/98 STANDING UP. LABS DRAWN AND MG LEVEL WAS 1.7. MAGNESIUM 50 ML IV WAS ORDERED. PT C/O ITCHING ON ARM. DISCONTINUED MAGNESIUM, 25 ML ADMINSTERED. NEW IV PLACED IN RIGHT WIRST AFTER LEFT WRIST WAS RED AND IRRITATED. PT ON ROOM AIR AT 100%. VENOUS DOPPLER ORDERED FOR PATIENT DUE TO SWELLING IN LEGS. RESULTS CAME BACK NEGATIVE. PT C/O PAIN, ASKS FOR HYDROMORPHONE AND CODEINE ORDERED PRN. PT STATES PAIN IS AROUND AN 8 AND ONLY DECREASED TO ABOUT A 6 AFTER MEDICATION. FALL RISK PRECUATIONS IN PLACE. WILL CONTINUE TO MONITOR.
--- NOTE | 2017-10-18 19:06 | CON ---
[facility] [address] [place] [address] CONSULTATION Name: CORY CARUSO Room: [address] IN M.R.#: [id number] Admission: 10/10/17 Attend Phys: Claudia Mcdermott Discharge: Date of : 63 Report #: [id number] THIS REPORT FOR: //name// CC: Adam Ramos DATE OF SERVICE: 10/11/2017 HISTORY OF PRESENT ILLNESS: This is a 52-year-old female patient who indicated that she has some facial numbness. History is poorly defined, but it is on the left side. It is moderately severe. It is going on for 3 days, but she had numbness before. There is no associated motor deficit. It came spontaneously without any trauma. REVIEW OF SYSTEMS: Indicates that this patient has been admitted to this hospital multiple times. I have seen her in the past and she indicates that she had strokes in the past. She had presented with stroke-like symptoms multiple times and on one time she was here with what looks like facial weakness also and at one time she has also received TPA. MRI has mostly shown old changes, but nothing specific. She had a very extensive workup in the past and she had numerous MRIs. She is scheduled for another one and at one time she even had a spinal tap. Review of systems also indicates she had [place] spotted fever. She indicates she has been diagnosed with frontal lobe dementia. She does have a high blood sugar. Her TSH and vitamin B12 level was checked at one time and that was unremarkable. Due to multiple other symptoms, I have seen her in the past and those records are in the chart. PAST MEDICAL HISTORY: Positive for a few stable lesions in the brain, which has been thought to be secondary to stroke. FAMILY HISTORY: Unremarkable. PHYSICAL EXAMINATION: Indicate she is alert, responsive. She says she knows what month it is, but does not know the date. Her speech looks intact. Cranial nerve examination 2-12 is unremarkable. She has symmetrical strength, sensation, reflexes and tone in all 4 extremities. Her cardiac examinations appear unremarkable. No respiratory difficulty. Blood pressure is 104/66, respirations 16, pulse is 81 and temperature is 97.7. No edema, cyanosis or jaundice. LABORATORY DATA: White count is normal. are unremarkable. CT scan of the head is unremarkable. IMPRESSION: I discussed with the patient that I do not know what the etiology of her symptoms are. She has an extensive record in the computer and I reviewed that and she has been worked up pretty thoroughly for [place] [address] CONSULTATION Name: CORY CARUSO Room: [address] IN ..#: [id number] Admission: 10/10/17 Attend Phys: Claudia Mcdermott Discharge: Date of : 63 Report #: [id number] I discussed with her that there is really not much I can do in this patient. I discussed with her that the patient like her should be managed in a tertiary care center. I suggested that she get an MRI of the brain done and if that is negative, then she contact her physician at [facility] and follow up with them as soon as possible and further management will be deferred to them. I discussed with her the limitation of our hospital and complexity of her case and the need to go to a tertiary care center. Thank you very much for this referral. <ELECTRONICALLY SIGNED> By: Camacho Schaefer MD 10/18/17 [id number] Schaefer MD /nt
--- NOTE | 2017-10-18 19:44 | NUR ---
PATIENT ASKING FOR FENTANYL TO BE ORDERED TO HELP WTIH GENERALIZED PAIN. EXPLAINED TO PATIENT THAT SINCE PATIENT IS BEING CLOSE TO DISCHARGE THAT ORAL MEDS ARE THE PREFERRED CHOICE TO HELP MANAGE PAIN. PATIENT ALSO STATING THAT SHE IS FEELING WEAKER AND DIZZY WHEN AMBULATING TO BATHROOM, OFFERED PATIENT WALKER AND PATIENT REFUSED. FALL PRECAUTIONS REMAIN IN PLACE. HOURLY ROUNDING COMPLETED. CALL LIGHT WITHIN REACH. REPORT GIVEN TO ONCOMING RN.
--- NOTE | 2017-10-18 19:48 | NUR ---
I HAVE READ AND REVIEWED THE DOCUMENTATION FROM DANIEL LAL, STUDENT NURSE AND AGREE WITH THE DOCUMENTED INTERVENTIONS AND ASSESSMENTS.
[2017-10-19] VITALS: BP 105/60
--- NOTE | 2017-10-19 05:25 | NUR ---
PATIENT SLEPT PART OF THE NIGHT. PATIENT CONTINUES TO COMPLAIN OF GENERALIZED PAIN. PAIN MEDS WERE GIVEN WITH SOME RELIEF. PATIENT WAS COMPLAINING OF ITCHING AND DID HAVE A FEW PATCHY RED SPOTS OF SKIN. DOCTOR WAS NOTIFIED AND BENADRYL WAS GIVEN. LOPEZ REMAINS TO DEPENDENT DRAIN. PATIENT IS POSSIBLY GOING TO SKILLED FACILITY. WILL CONTINUE TO MONITOR.
[2017-10-19 09:00] VITALS: BP 100/64
[2017-10-19] MEDS ORDERED: TRAMADOL 50 MG50 MG PO (14:35)
[2017-10-19 14:37] VITALS: BP 97/55
[2017-10-19 15:57] VITALS: BP 115/69
--- NOTE | 2017-10-19 16:10 | NUR ---
SW followed up with pt about dc planning. SW explained that Ulysses Amanda is still waiting on insurance authorization. SW called twice to check on status and status is still pending. SW to continue to follow to assist with finalizing safe dc plan. Pt said she was not feeling well but would be ready for transition to SNF as soon as approval is received.
--- NOTE | 2017-10-19 16:14 | NUR ---
AWAITING INSURANCE AUTH FOR PATIENT DISCHARGE TO THE [facility]. PATIENT OUT OF BED WITH ASSISTACE, BED ALARM IN PLACE. LOPEZ REMAINS IN PLACE, DRAINING YELLOW URINE. NO IV. PATIENT GIVEN PRN ZOFRAN X 1 FOR NAUSEA. MIDODRINE GIVEN TID THIS SHIFT ORDERED, BLOOD PRESSURES WITHIN NORMAL LIMITS.
[2017-10-19 20:00] VITALS: BP 113/63
--- NOTE | 2017-10-20 05:21 | NUR ---
ASSUMED CARE OF PT AT 1900 PT GROGGY BUT AROUSABLE AND ORIENTED X4. VS AND ASSESSMENT STABLE, HELD ALL SEDATIVE MEDS THIS SHIFT AND INSULIN DUE TO BLOOD SUGAR OF 94. PT HAD TYLENOL ONCE THEN SLEPT THROUGH THE NIGHT.WILL MONITOR.
[2017-10-20 08:01] VITALS: BP 103/59
--- NOTE | 2017-10-20 09:36 | NUR ---
TIMMY received call from Ina at [facility] stating that they received authorization from pt insurance and can accept pt today for SNF. Scheduled transportation for pt to be picked up at 12:30 pm. SW to fax final orders/med list to [facility]. TIMMY informed nurse and pt of status and pt in agreement with plan.
[2017-10-20 09:42] VITALS: BP 97/55
[2017-10-20 10:19] LABS: HEMOGLOBIN 11.2 gm/dL (12.0-15.0); MCH 29.6 pg (26.0-34.0); MCHC 32.9 g/dL (28.0-37.0); MCV 89.9 fL (80.0-100.0); MPV 8.7 fl. (7.2-11.1); RBC 3.79 mil/uL (4.20-5.00); RDW-CV 15.2 % (10.5-14.5); WBC 11.3 thou/uL (4.0-11.0)
[2017-10-20 10:29] LABS: ALBUMIN 2.5 g/dL (3.4-5.0); CALCIUM 8.3 mg/dL (8.5-10.1); CREATININE 0.7 mg/dL (0.6-1.3); POTASSIUM 3.8 mmol/L (3.5-5.1); TOTAL BILIRUBIN 0.9 mg/dL (<0.1-1.0); TOTAL PROTEIN 6.2 g/dL (6.4-8.2)
[2017-10-20 12:27] VITALS: BP 97/55
[2017-10-20 12:36] VITALS: BP 97/55
[2017-10-20 13:00] VITALS: BP 97/55
--- NOTE | 2017-10-20 14:27 | NUR ---
ASSUMED CARES AT BEDSIDE REPORT AT 0700. PT IN BED, BED IN LOW AND LOCKED POSITION, BED ALARM ACTIVE, FALL PRECAUTIONS IN PLACE. CALL BUTT0N AND PERSONAL ITEMS IN PT REACH. PT A&O X4, ANXIOUS, TALKATIVE. TAKES MEDS WELL PO. VSS ON RA, AFEBRILE, PERRL, SKIN INTACT, LCTAB, LOPEZ PATENT WITH YELLOW URINE, OUTPUT WNL. PT REFUSES SCD'S THIS SHIFT. NO IV ACCESS. HOURLY ROUNDING AND ACCU CHECKS COMPLETED. PT CLEARED FOR DISCHARGE TO SNF FOR REHAB. PT COMPLAIN OF NAUSEA AND PAIN, MEDICATION GIVEN AND SOMEWHAT EFFECTIVE PER PT STATEMENT. PT SHOWERED IN SHOWER ROOM, DRESSED AND PREPARED FOR D/C. PERSONAL ITEMS PACKED, ROOM CHECKED. SNF TRANSPORT ARRIVED AT 1235. PT DISCHARGE ORDERS, PRESCRIPTIONS AND EDUCATION NOTES ALL PLACED IN DISCHARGE PACKET. PT STABLE, TALKATIVE AND SMILING AT DISCHARGE. PT ESCORTED BY TRANSPORT FROM SNF VIA TO [facility]. PERSONAL BELONGINGS ALL TAKEN. REPORT ATTEMPTED BY PHONE CALL AT 1306, NURSES STATION DID NOT ANSWER TRANSFER FROM CLIENT ARCHITECT. THIS NURSE WAITED ON LINE FOR 6 MINUTES. WILL ATTEMPT TO CALL AGAIN LATER TO GIVE REPORT AND ANSWER QUESTIONS. DISCHARGE SUCCESSFUL AT 1258.
--- NOTE | 2017-10-20 14:44 | NUR ---
NURSE CALLED DR GOLD R/T PT DISCHARGE AT 1130. DR. GOLD STATED SHE WAS AT [facility] AND WOUND TRY TO GET TO [facility] TO SEE PT, BUT TO NOT HOLD UP DISCHARGE AT [address] GOLD DID NOT MAKE IT TO SEE PT BEFORE D/C SCHEDULED TIME TO SNF.
[2018-06-21] MEDS ORDERED: NORCO 5-325 TA1 EACH PO (08:24)
[2018-06-21] MEDS ORDERED: ACETAMINOPHEN-1 EAC1 PO (08:24)
[2018-06-21] MEDS ORDERED: DIFLUCAN150 MG PO (08:24)
[2018-06-21] MEDS ORDERED: ACYCLOVIR 400400 MG PO (08:24)
[2018-06-21] MEDS ORDERED: KEFLEX500 M1 PO (08:24)
== END 2017-10-20 12:58 | DRG 312 ==
LOC: M.ERS 17:14 → M.3W 20:08 → M.2W 20:08 → M.TBA-ER 20:08 → M.2W 21:13 → M.3W 10-12 17:37
PROVIDERS: Emergency Medicine; Internal Medicine; Personal Emergency Response Attendant; ADMIT Internal Medicine
DX: I95.1 Orthostatic hypotension (principal); R07.89 Other chest pain; Z86.73 Personal history of transient ischemic attack (TIA), and cerebral infarction without residual deficits; E11.9 Type 2 diabetes mellitus without complications; G43.909 Migraine, unspecified, not intractable, without status migrainosus; M79.7 Fibromyalgia; J45.909 Unspecified asthma, uncomplicated; R33.9 Retention of urine, unspecified; R10.2 Pelvic and perineal pain; G89.29 Other chronic pain; G31.09 Other frontotemporal neurocognitive disorder; F02.80 Dementia in other diseases classified elsewhere, unspecified severity, without behavioral disturbance, psychotic disturbance, mood disturbance, and anxiety; B27.90 Infectious mononucleosis, unspecified without complication; I35.1 Nonrheumatic aortic (valve) insufficiency; R53.82 Chronic fatigue, unspecified; Z90.49 Acquired absence of other specified parts of digestive tract; Z79.899 Other long term (current) drug therapy; Z79.82 Long term (current) use of aspirin; Z79.4 Long term (current) use of insulin; Z88.0 Allergy status to penicillin; Z88.1 Allergy status to other antibiotic agents; Z88.8 Allergy status to other drugs, medicaments and biological substances; Z91.030 Bee allergy status; Z87.440 Personal history of urinary (tract) infections; Z82.49 Family history of ischemic heart disease and other diseases of the circulatory system; Z82.3 Family history of stroke

== ENCOUNTER 2018-02-01 12:51 | Emergency (ER) | payer BC ==
[~2018-02-01] VITALS: Ht 162.6 cm; Wt 79.8 kg
[~2018-02-01 12:51] MED LIST changes: +HUMULIN R100 UNIT/M SUBQ; +LEVEMIR SUBQ; +LIDOPATCH1 EACH TOP; +MIDODRINE HCL 55 M1 PO; +TRAMADOL 50 MG50 MG PO
[2018-02-01] MEDS ORDERED: ACETAMINOPHEN-1 EAC1 PO (13:08)
[2018-02-01 13:33] LABS: URINE BILIRUBIN NEGATIVE (Negative); URINE BLOOD TRACE (Negative); URINE CLARITY CLEAR; URINE COLOR YELLOW; URINE GLUCOSE-RANDOM 3+ (Negative); URINE KETONES NEGATIVE (Negative); URINE LEUKOCYTES-REFLEX 1+ (Negative); URINE NITRITE-REFLEX NEGATIVE (Negative); URINE PROTEIN NEGATIVE (Negative); URINE UROBILINOGEN 0.2 E.U./dl (0.2-1.0)
[2018-02-01 13:48] LABS: ABSOLUTE BASOPHILS 0.1 thou/uL (0.0-0.2); ABSOLUTE EOSINOPHILS 0.2 thou/uL (0.0-0.7); ABSOLUTE LYMPHOCYTES 3.5 thou/uL (0.8-5.3); ABSOLUTE MONOCYTES 0.5 thou/uL (0.0-1.2); ABSOLUTE NEUTROPHILS 5.5 thou/uL (1.6-8.1); EOSINOPHILS 1.8 %; HEMATOCRIT 40.6 % (37.0-47.0); HEMOGLOBIN 13.5 gm/dL (12.0-15.0); LYMPHOCYTES 35.6 %; MCH 29.1 pg (26.0-34.0); MCHC 33.2 g/dL (28.0-37.0); MCV 87.5 fL (80.0-100.0); MONOCYTES 5.4 %; MPV 7.9 fl. (7.2-11.1); NUCLEATED RBCS 0 /100WBC; PLATELET COUNT* 277 thou/uL (150-400); POLYS 56.2 %; RBC 4.64 mil/uL (4.20-5.00); WBC 9.8 thou/uL (4.0-11.0)
[2018-02-01 13:49] LABS: SQUAMOUS 4-10 Moderate /LPF (0-3)
[2018-02-01 13:50] LABS: BACTERIA-REFLEX None Seen /HPF (None Seen); CASTS None Seen /LPF (None Seen); CRYSTALS None Seen /LPF (None Seen); MUCUS None Seen strn/LPF (None Seen); URINE RBC None Seen /HPF (0-2); URINE WBC-REFLEX 0-5 Rare /HPF (0-5)
[2018-02-01 13:57] LABS: ANION GAP 6 mmol/L (7-16); BUN 11 mg/dL (7-18); CALCIUM 8.4 mg/dL (8.5-10.1); CHLORIDE 101 mmol/L (98-107); CO2 30 mmol/L (21-32); CREATININE 0.7 mg/dL (0.6-1.3); GLUCOSE 190 mg/dL (70-99); POTASSIUM 3.6 mmol/L (3.5-5.1); SODIUM 137 mmol/L (136-145)
[2018-02-01 14:07] LABS: ALBUMIN 3.1 g/dL (3.4-5.0); ALKALINE PHOSPHATASE 56 U/L (46-116); LIPASE 218 U/L (73-393); NT-PRO BRAIN NAT PEPTIDE 79 pg/mL (<300); SGOT 19 U/L (15-37); SGPT 32 U/L (30-65); TOTAL BILIRUBIN 0.6 mg/dL (<0.1-1.0); TOTAL PROTEIN 6.9 g/dL (6.4-8.2); TROPONIN-I LEVEL <0.06 ng/mL (<0.06)
[2018-02-01] MEDS ORDERED: ANTIVERT25 MG PO (14:53)
[2018-02-01 14:58] VITALS: BP 139/80
--- NOTE | 2018-02-01 17:07 | EKG ---
[place] [address] ELECTROCARDIOGRAM REPORT Name: CORY CARUSO Room: [facility]#: [id number] Admission: 02/01/18 Attend Phys: Discharge: 02/01/18 Date of : 63 Report #: [id number] THIS REPORT FOR: //name// [facility] ED Test Date: 2018-02-01 Test Time: 13:32:48 Pat Name: CORY CARUSO Department: Room: Gender: F Neurology Stroke Physician: RUSSELL : 1965 Requested By: Lisa Frazier Order Number: [id number] MD: Malcolm Sneed Measurements Intervals [place] Rate: 85 P: 30 AR: 136 QRS: -7 QRSD: 93 T: 1 QT: 365 QTc: 434 Interpretive Statements Sinus rhythm LVH by voltage Compared to ECG 10/15/2017 17:06:52 Left ventricular hypertrophy now present Electronically Signed On 02-01-2018 17:06:42 CDT by Malcolm Sneed [email or web address] <ELECTRONICALLY SIGNED> By: Malcolm Sneed MD, [facility] 02/01/18 1706 1332 1332 Malcolm Sneed MD, FACC /EPI
[2018-06-21] MEDS ORDERED: DIFLUCAN150 MG PO (08:24)
[2018-06-21] MEDS ORDERED: ACYCLOVIR 400400 MG PO (08:24)
[2018-06-21] MEDS ORDERED: NORCO 5-325 TA1 EACH PO (08:24)
[2018-06-21] MEDS ORDERED: KEFLEX500 M1 PO (08:24)
[2018-06-21] MEDS ORDERED: ACETAMINOPHEN-1 EAC1 PO (08:24)
== END 2018-02-01 15:04 | disposition home or self-care (01) ==
LOC: M.ERS 12:51
PROVIDERS: Nurse Practitioner
DX: R42 Dizziness and giddiness (principal); H65.93 Unspecified nonsuppurative otitis media, bilateral; E11.9 Type 2 diabetes mellitus without complications; G43.909 Migraine, unspecified, not intractable, without status migrainosus; M79.7 Fibromyalgia; J45.909 Unspecified asthma, uncomplicated; Z90.49 Acquired absence of other specified parts of digestive tract; Z79.4 Long term (current) use of insulin; Z88.0 Allergy status to penicillin; Z88.1 Allergy status to other antibiotic agents; Z88.8 Allergy status to other drugs, medicaments and biological substances

== ENCOUNTER 2018-03-13 06:37 | Emergency (ER) | payer BC ==
[~2018-03-13] VITALS: Ht 162.6 cm; Wt 81.7 kg
[~2018-03-13 06:37] MED LIST changes: +ANTIVERT25 MG PO
[2018-03-13 06:54] LABS: URINE BILIRUBIN NEGATIVE (Negative); URINE BLOOD 2+ (Negative); URINE CLARITY CLEAR; URINE COLOR YELLOW; URINE GLUCOSE-RANDOM 3+ (Negative); URINE KETONES TRACE (Negative); URINE LEUKOCYTES-REFLEX 1+ (Negative); URINE NITRITE-REFLEX NEGATIVE (Negative); URINE PROTEIN 1+ (Negative); URINE SPECIFIC GRAVITY >= 1.030 (1.005-1.030); URINE UROBILINOGEN 0.2 E.U./dl (0.2-1.0)
[2018-03-13 07:02] LABS: SQUAMOUS 0-3 Few /LPF (0-3)
[2018-03-13 07:03] LABS: CASTS None Seen /LPF (None Seen); CRYSTALS None Seen /LPF (None Seen); MUCUS None Seen strn/LPF (None Seen); URINE WBC-REFLEX 6-15 Few /HPF (0-5)
[2018-03-13] MEDS ORDERED: PYRIDIUM200 MG PO (07:29)
[2018-03-13] MEDS ORDERED: KEFLEX500 M1 PO (07:29)
[2018-03-13] MEDS ORDERED: ZOFRAN ODT4 MG SUBLING (07:29)
[2018-03-13 07:42] VITALS: BP 119/76
[2018-06-21] MEDS ORDERED: ACYCLOVIR 400400 MG PO (08:24)
[2018-06-21] MEDS ORDERED: DIFLUCAN150 MG PO (08:24)
[2018-06-21] MEDS ORDERED: NORCO 5-325 TA1 EACH PO (08:24)
[2018-06-21] MEDS ORDERED: ACETAMINOPHEN-1 EAC1 PO (08:24)
[2018-06-21] MEDS ORDERED: KEFLEX500 M1 PO (08:24)
== END 2018-03-13 07:43 | disposition home or self-care (01) ==
LOC: M.ERS 06:37
PROVIDERS: Emergency Medicine
DX: N39.0 Urinary tract infection, site not specified (principal); E11.9 Type 2 diabetes mellitus without complications; G43.909 Migraine, unspecified, not intractable, without status migrainosus; M79.7 Fibromyalgia; J45.909 Unspecified asthma, uncomplicated; Z90.89 Acquired absence of other organs; Z90.49 Acquired absence of other specified parts of digestive tract; Z86.73 Personal history of transient ischemic attack (TIA), and cerebral infarction without residual deficits; Z88.1 Allergy status to other antibiotic agents; Z88.0 Allergy status to penicillin; Z91.030 Bee allergy status; Z79.4 Long term (current) use of insulin

== ENCOUNTER 2018-04-09 12:59 | Inpatient (IN) | payer BC ==
[~2018-04-09] VITALS: Ht 162.6 cm; Wt 83.9 kg
[~2018-04-09 12:59] MED LIST changes: +KEFLEX500 M1 PO; +PYRIDIUM200 MG PO; +ZOFRAN ODT4 MG SUBLING
[2018-04-09 13:05] VITALS: BP 147/98
[2018-04-09 13:14] LABS: URINE BILIRUBIN NEGATIVE (Negative); URINE BLOOD NEGATIVE (Negative); URINE CLARITY CLEAR; URINE COLOR YELLOW; URINE GLUCOSE-RANDOM 1+ (Negative); URINE KETONES TRACE (Negative); URINE LEUKOCYTES-REFLEX TRACE (Negative); URINE NITRITE-REFLEX NEGATIVE (Negative); URINE PROTEIN NEGATIVE (Negative); URINE UROBILINOGEN 0.2 E.U./dl (0.2-1.0)
[2018-04-09 13:26] LABS: BACTERIA-REFLEX 1-9 Few /HPF (None Seen); CASTS None Seen /LPF (None Seen); CRYSTALS None Seen /LPF (None Seen); MUCUS 0-3 Light strn/LPF (None Seen); SQUAMOUS 4-10 Moderate /LPF (0-3); URINE RBC 0-2 Rare /HPF (0-2)
[2018-04-09 13:51] LABS: ABSOLUTE BASOPHILS 0.1 thou/uL (0.0-0.2); ABSOLUTE EOSINOPHILS 0.2 thou/uL (0.0-0.7); ABSOLUTE LYMPHOCYTES 2.9 thou/uL (0.8-5.3); ABSOLUTE MONOCYTES 0.6 thou/uL (0.0-1.2); EOSINOPHILS 1.8 %; HEMATOCRIT 41.4 % (37.0-47.0); HEMOGLOBIN 13.9 gm/dL (12.0-15.0); LYMPHOCYTES 33.7 %; MCH 30.1 pg (26.0-34.0); MCHC 33.5 g/dL (28.0-37.0); MCV 89.8 fL (80.0-100.0); MONOCYTES 6.5 %; MPV 8.8 fl. (7.2-11.1); NUCLEATED RBCS 0 /100WBC; PLATELET COUNT* 267 thou/uL (150-400); RBC 4.61 mil/uL (4.20-5.00); RDW-CV 14.8 % (10.5-14.5); WBC 8.8 thou/uL (4.0-11.0)
[2018-04-09 13:56] LABS: CALCIUM 8.8 mg/dL (8.5-10.1); CREATININE 0.9 mg/dL (0.6-1.3); POTASSIUM 3.8 mmol/L (3.5-5.1)
[2018-04-09 14:00] LABS: ALBUMIN 3.2 g/dL (3.4-5.0); TOTAL BILIRUBIN 0.8 mg/dL (<0.1-1.0); TOTAL PROTEIN 7.1 g/dL (6.4-8.2)
[2018-04-09 15:54] LABS: PROTIME 9.5 Seconds (9.20-11.50)
[2018-04-09 16:16] LABS: AMP/METHAMP Negative (Negative); BARBITURATES Negative (Negative); BENZODIAZEPINES Negative (Negative); COCAINE Negative (Negative); METHADONE Negative (Negative); OPIATES Negative (Negative); PCP Negative (Negative); THC Negative (Negative)
[2018-04-09 18:43] VITALS: BP 131/99
[2018-04-10 00:02] VITALS: BP 153/86
[2018-04-10 04:25] LABS: ABSOLUTE BASOPHILS 0.1 thou/uL (0.0-0.2); ABSOLUTE EOSINOPHILS 0.2 thou/uL (0.0-0.7); ABSOLUTE MONOCYTES 0.6 thou/uL (0.0-1.2); ABSOLUTE NEUTROPHILS 5.6 thou/uL (1.6-8.1); BASOPHILS 0.7 %; HEMATOCRIT 39.2 % (37.0-47.0); HEMOGLOBIN 12.8 gm/dL (12.0-15.0); LYMPHOCYTES 31.8 %; MCHC 32.7 g/dL (28.0-37.0); MCV 91.7 fL (80.0-100.0); MONOCYTES 6.4 %; MPV 9.3 fl. (7.2-11.1); NUCLEATED RBCS 0 /100WBC; PLATELET COUNT* 240 thou/uL (150-400); POLYS 59.1 %; RBC 4.28 mil/uL (4.20-5.00); RDW-CV 14.7 % (10.5-14.5); WBC 9.4 thou/uL (4.0-11.0)
[2018-04-10 04:30] LABS: CALCIUM 7.6 mg/dL (8.5-10.1); CREATININE 0.8 mg/dL (0.6-1.3); MAGNESIUM 1.5 mg/dL (1.8-2.4); POTASSIUM 3.9 mmol/L (3.5-5.1)
--- NOTE | 2018-04-10 05:07 | NUR ---
ASSESSMENT COMPLETE. PT SLEPT PART OF THE NIGHT. PT COMPLAINS OF PAIN AND NAUSEA. PRN MEDICATIONS GIVEN. PT IS UP STANDBY ASSIST. IV FLUIDS INFUSING. SEE ASSESSMENT AND VITALS FOR OTHER DETAILS. CALL LIGHT WITHIN REACH, WILL CONTINUE PLAN OF CARE
[2018-04-10 07:55] VITALS: BP 144/82
--- NOTE | 2018-04-10 11:45 | NUR ---
MET WITH PT TO DISCUSS HOME SITUATION/DC PLANNING. PT KNOWN TO CM FROM PREVIOUS HOSPITAL STAY IN OCT, SHE WENT TO SNF AT [facility] AT THAT TIME. SHE STATES SHE HAD A STAY AT AFTER THAT AND WENT TO THEIR ACUTE REHAB. SHE HAD BEEN GIONG TO OUTPT THERAPY AT [facility] IN [place] 4X/WK [place]. [place]. SHE LIVES WITH SPOUSE, HE DOES 'EVERYTHING' AROUND THE HOUSE AND DRIVES. PT DOESN'T DRIVE. SHE IS ABLE TO DO HER OWN ADLS. WILL FOLLOW
--- NOTE | 2018-04-10 17:38 | NUR ---
PT CONT ON UNIT FOR ABD PAIN, CONT ON TYLENOL3 FOR PAIN PRN. IV TO R WRIST INFILTRATED, NEW IV STARTED IN LEFT FA, IS PATENT AND HAS NS INFUSING @ 100ML/HR. BLADDER SCANS ORDERED FOR POST VOID SCAN, CONT TO MONITOR. STOOL SAMPLE PENDING D/T NO BM THIS SHIFT. MAG PROTOCOL STARTED. PT DIET ADVANCED, AND IS TOLERATING WELL. PT IN ROOM EATING DINNER WITH FAMILY, HOURLY ROUNDING MAINTAINED, CALL LIGHT IN REACH.
[2018-04-10 23:40] VITALS: BP 111/69
[2018-04-11 04:34] LABS: ABSOLUTE BASOPHILS 0.1 thou/uL (0.0-0.2); ABSOLUTE EOSINOPHILS 0.2 thou/uL (0.0-0.7); ABSOLUTE LYMPHOCYTES 3.5 thou/uL (0.8-5.3); ABSOLUTE MONOCYTES 0.5 thou/uL (0.0-1.2); ABSOLUTE NEUTROPHILS 4.9 thou/uL (1.6-8.1); BASOPHILS 0.8 %; EOSINOPHILS 2.6 %; HEMATOCRIT 41.8 % (37.0-47.0); HEMOGLOBIN 13.9 gm/dL (12.0-15.0); LYMPHOCYTES 38.2 %; MCHC 33.2 g/dL (28.0-37.0); MCV 90.2 fL (80.0-100.0); MONOCYTES 5.4 %; MPV 9.1 fl. (7.2-11.1); NUCLEATED RBCS 0 /100WBC; PLATELET COUNT* 253 thou/uL (150-400); RBC 4.64 mil/uL (4.20-5.00); RDW-CV 14.9 % (10.5-14.5); WBC 9.2 thou/uL (4.0-11.0)
[2018-04-11 04:50] LABS: CALCIUM 8.4 mg/dL (8.5-10.1); CREATININE 0.8 mg/dL (0.6-1.3); POTASSIUM 4.5 mmol/L (3.5-5.1)
--- NOTE | 2018-04-11 05:40 | NUR ---
ASSESSMENT COMPLETE. PT ALERT AND ORIENTED X4. PT GIVEN PAIN MEDICATION ONCE DURING THE NIGHT. PT GIVEN PRUNE JUICE PER REQUEST FOR CONSTIPATION. PT REPORTS PASSING GAS, NO BM AT THIS TIME. PT IS UP AD LOUIE WITH STEADY GAIT TO THE BATHROOM. IV FLUIDS INFUSING. PT IS ON ROOM AIR WITH [place]DEQAUTE SATS. PT POST RESIDUAL BLADDER SCANS DURING THE NIGHT LESS THAN 300ML. SEE ASSSESSMENT AND VITALS FOR OTHER DETAILS. CALL LIGHT WITHIN REACH. WILL CONTINUE PLAN OF CARE
[2018-04-11 07:50] VITALS: BP 120/73
[2018-04-11] MEDS ORDERED: BACTRIM DS TAB1 EACH PO (13:09)
[2018-04-11] MEDS ORDERED: ONDANSETRON HCL4 M2 PO (13:10)
[2018-04-11] MEDS ORDERED: FLOMAX0.4 MG PO (13:13)
[2018-04-11] MEDS ORDERED: MIRALAX17 GM PO (13:21)
[2018-04-11 14:14] VITALS: BP 120/73
--- NOTE | 2018-04-11 15:40 | NUR ---
PATIENT DISCHARGED TO HOME WITH HOME HEALTH. DISCHARGE PAPERS REVIEWED AND SIGNED. PRESCRIPTIONS CALLED TO PHARMACY. IV REMOVED. LOPEZ EDUCATION GIVEN. PATIENT REQUESTED DIFLUCAN, MESSAGE SENT TO DOCTOR. PATIENT DENIES ANY OTHER NEEDS. PATIENT TAKEN BY WHEELCHAIR TO EXIT. LEFT WITH .
[2018-06-21] MEDS ORDERED: DIFLUCAN150 MG PO (08:24)
[2018-06-21] MEDS ORDERED: ACETAMINOPHEN-1 EAC1 PO (08:24)
[2018-06-21] MEDS ORDERED: NORCO 5-325 TA1 EACH PO (08:24)
[2018-06-21] MEDS ORDERED: KEFLEX500 M1 PO (08:24)
[2018-06-21] MEDS ORDERED: ACYCLOVIR 400400 MG PO (08:24)
== END 2018-04-11 15:40 | disposition home health service (06) | DRG 690 ==
LOC: M.ERS 12:59 → M.3W 16:27 → M.TBA-ER 16:27 → M.3W 16:27
PROVIDERS: Nurse Practitioner Family; ADMIT Internal Medicine
DX: N39.0 Urinary tract infection, site not specified (principal); R33.9 Retention of urine, unspecified; E11.65 Type 2 diabetes mellitus with hyperglycemia; G43.909 Migraine, unspecified, not intractable, without status migrainosus; M79.7 Fibromyalgia; J45.909 Unspecified asthma, uncomplicated; R19.7 Diarrhea, unspecified; F41.9 Anxiety disorder, unspecified; F31.9 Bipolar disorder, unspecified; G89.29 Other chronic pain; F03.90 Unspecified dementia, unspecified severity, without behavioral disturbance, psychotic disturbance, mood disturbance, and anxiety; B96.20 Unspecified Escherichia coli [E. coli] as the cause of diseases classified elsewhere; K59.00 Constipation, unspecified; Z87.440 Personal history of urinary (tract) infections; Z90.89 Acquired absence of other organs; Z86.73 Personal history of transient ischemic attack (TIA), and cerebral infarction without residual deficits; Z90.49 Acquired absence of other specified parts of digestive tract; Z79.899 Other long term (current) drug therapy; Z79.4 Long term (current) use of insulin; Z79.82 Long term (current) use of aspirin; Z88.8 Allergy status to other drugs, medicaments and biological substances; Z88.0 Allergy status to penicillin; Z91.030 Bee allergy status; Z82.49 Family history of ischemic heart disease and other diseases of the circulatory system; Z82.3 Family history of stroke; Z84.89 Family history of other specified conditions

== ENCOUNTER 2018-04-19 06:12 | Emergency (ER) | payer BC ==
[~2018-04-19] VITALS: Ht 162.6 cm; Wt 81.7 kg
[~2018-04-19 06:12] MED LIST changes: +FLOMAX0.4 MG PO; +MIRALAX17 GM PO
[2018-04-19 06:30] VITALS: BP 105/70
[2018-06-21] MEDS ORDERED: ACYCLOVIR 400400 MG PO (08:24)
[2018-06-21] MEDS ORDERED: NORCO 5-325 TA1 EACH PO (08:24)
[2018-06-21] MEDS ORDERED: DIFLUCAN150 MG PO (08:24)
[2018-06-21] MEDS ORDERED: ACETAMINOPHEN-1 EAC1 PO (08:24)
[2018-06-21] MEDS ORDERED: KEFLEX500 M1 PO (08:24)
== END 2018-04-19 06:31 | disposition home or self-care (01) ==
LOC: M.ERS 06:12
DX: T83.9XXA Unspecified complication of genitourinary prosthetic device, implant and graft, initial encounter (principal); E11.9 Type 2 diabetes mellitus without complications; G43.909 Migraine, unspecified, not intractable, without status migrainosus; M79.7 Fibromyalgia; J45.909 Unspecified asthma, uncomplicated; Z90.49 Acquired absence of other specified parts of digestive tract; Z88.0 Allergy status to penicillin; Z88.1 Allergy status to other antibiotic agents; Z88.5 Allergy status to narcotic agent; Z88.8 Allergy status to other drugs, medicaments and biological substances

== ENCOUNTER → 2018-04-26 | Outpatient (CLI) | payer BC ==
[~2018-04-26] MED LIST changes: +ACYCLOVIR 400400 MG PO; +DIFLUCAN150 MG PO; +HUMALOG100 UNIT/1 SUBQ; +HYDROXYZINE HCL25 M1 PO; +METFORMIN HCL500 MG PO; +MOBIC7.5 MG PO; +SERTRALINE HCL50 MG PO; +TORADOL 10 MG T10 MG PO
== END ==
LOC: M.MRI 13:12
DX: M75.101 Unspecified rotator cuff tear or rupture of right shoulder, not specified as traumatic (principal); M19.011 Primary osteoarthritis, right shoulder

== ENCOUNTER → 2018-05-16 | Outpatient (CLI) | payer BC | LOC: M.MRI 11:02 | DX: M54.12 Radiculopathy, cervical region (principal); E11.9 Type 2 diabetes mellitus without complications; J45.909 Unspecified asthma, uncomplicated; G43.909 Migraine, unspecified, not intractable, without status migrainosus ==

== ENCOUNTER → 2018-05-31 | Outpatient (CLI) | payer BC | END | disposition home or self-care (01) | LOC: M.RAD 09:41 | DX: M25.551 Pain in right hip (principal); M25.552 Pain in left hip; E11.649 Type 2 diabetes mellitus with hypoglycemia without coma; F41.9 Anxiety disorder, unspecified; Z86.73 Personal history of transient ischemic attack (TIA), and cerebral infarction without residual deficits; Z79.899 Other long term (current) drug therapy; Z88.8 Allergy status to other drugs, medicaments and biological substances; Z79.82 Long term (current) use of aspirin; Z79.4 Long term (current) use of insulin; Z98.890 Other specified postprocedural states; Z87.440 Personal history of urinary (tract) infections ==

== ENCOUNTER 2018-06-10 06:39 | Emergency (ER) | payer BC ==
[~2018-06-10] VITALS: Ht 162.6 cm; Wt 81.7 kg
[~2018-06-10 06:39] MED LIST changes: -ACYCLOVIR 400400 MG PO; -DIFLUCAN150 MG PO; -HUMALOG100 UNIT/1 SUBQ; -HYDROXYZINE HCL25 M1 PO; -METFORMIN HCL500 MG PO; -MOBIC7.5 MG PO; -SERTRALINE HCL50 MG PO; -TORADOL 10 MG T10 MG PO
[2018-06-10] MEDS ORDERED: MOBIC7.5 MG PO (06:59)
[2018-06-10] MEDS ORDERED: LANTUS100 UNIT/M SUBQ (07:00)
[2018-06-10] MEDS ORDERED: HUMALOG100 UNIT/1 SUBQ (07:00)
[2018-06-10 07:14] LABS: URINE BILIRUBIN NEGATIVE (Negative); URINE BLOOD 3+ (Negative); URINE CLARITY CLEAR; URINE COLOR YELLOW; URINE GLUCOSE-RANDOM 3+ (Negative); URINE KETONES 1+ (Negative); URINE LEUKOCYTES-REFLEX NEGATIVE (Negative); URINE NITRITE-REFLEX NEGATIVE (Negative); URINE PROTEIN NEGATIVE (Negative); URINE UROBILINOGEN 0.2 E.U./dl (0.2-1.0)
[2018-06-10 07:21] LABS: HYALINE CASTS 0-3 Few /LPF (None Seen); MUCUS 0-3 Light strn/LPF (None Seen); SQUAMOUS >10 Many /LPF (0-3); WBC CLUMPS Few (None Seen)
[2018-06-10 07:22] LABS: URINE RBC 0-2 Rare /HPF (0-2)
[2018-06-10 07:23] LABS: CRYSTALS None Seen /LPF (None Seen); URINE WBC-REFLEX 6-15 Few /HPF (0-5)
[2018-06-10] MEDS ORDERED: ACYCLOVIR 400400 MG PO (07:33)
[2018-06-10] MEDS ORDERED: DIFLUCAN150 MG PO (07:33)
[2018-06-10] MEDS ORDERED: KEFLEX500 M1 PO (07:33)
[2018-06-10] MEDS ORDERED: NORCO 5-325 TA1 EACH PO (07:48)
[2018-06-10 07:51] VITALS: BP 122/77
[2018-06-21] MEDS ORDERED: ACETAMINOPHEN-1 EAC1 PO (08:24)
[2018-06-21] MEDS ORDERED: ACYCLOVIR 400400 MG PO (08:24)
[2018-06-21] MEDS ORDERED: NORCO 5-325 TA1 EACH PO (08:24)
[2018-06-21] MEDS ORDERED: DIFLUCAN150 MG PO (08:24)
[2018-06-21] MEDS ORDERED: KEFLEX500 M1 PO (08:24)
== END 2018-06-10 07:52 | disposition home or self-care (01) ==
LOC: M.ERS 06:39
PROVIDERS: Emergency Medicine
DX: N89.8 Other specified noninflammatory disorders of vagina (principal); E11.9 Type 2 diabetes mellitus without complications; G43.909 Migraine, unspecified, not intractable, without status migrainosus; M79.7 Fibromyalgia; J45.909 Unspecified asthma, uncomplicated; Z90.49 Acquired absence of other specified parts of digestive tract; Z88.0 Allergy status to penicillin; Z88.1 Allergy status to other antibiotic agents; Z88.5 Allergy status to narcotic agent; Z88.8 Allergy status to other drugs, medicaments and biological substances

== ENCOUNTER 2018-08-16 10:21 | Emergency (ER) | payer BC ==
[~2018-08-16] VITALS: Ht 162.6 cm; Wt 90.0 kg
[~2018-08-16 10:21] MED LIST changes: +ACYCLOVIR 400400 MG PO; +DIFLUCAN150 MG PO; +HUMALOG100 UNIT/1 SUBQ; +MOBIC7.5 MG PO
[2018-08-16] MEDS ORDERED: HYDROXYZINE HCL25 M1 PO (10:31)
[2018-08-16] MEDS ORDERED: SERTRALINE HCL50 MG PO (10:32)
[2018-08-16] MEDS ORDERED: ASPIR 8181 MG PO (10:33)
[2018-08-16] MEDS ORDERED: METFORMIN HCL500 MG PO (10:33)
[2018-08-16] MEDS ORDERED: TRAZODONE HCL100 MG PO (10:34)
[2018-08-16 11:11] LABS: APTT 24.3 Seconds (25.0-31.3); PROTIME 9.9 Seconds (9.20-11.50)
[2018-08-16 11:27] LABS: HEMATOCRIT 41.3 % (37.0-47.0); HEMOGLOBIN 13.6 gm/dL (12.0-15.0); MCH 29.4 pg (26.0-34.0); MPV 9.2 fl. (7.2-11.1); NUCLEATED RBCS 0 /100WBC; PLATELET COUNT* 270 thou/uL (150-400); RBC 4.63 mil/uL (4.20-5.00); RDW-CV 13.8 % (10.5-14.5); WBC 7.4 thou/uL (4.0-11.0)
[2018-08-16 11:28] LABS: ANION GAP 12 mmol/L (7-16); BUN 15 mg/dL (7-18); CALCIUM 8.5 mg/dL (8.5-10.1); CHLORIDE 97 mmol/L (98-107); CO2 24 mmol/L (21-32); CREATININE 0.9 mg/dL (0.6-1.3); GLUCOSE 376 mg/dL (70-99); POTASSIUM 3.8 mmol/L (3.5-5.1); SODIUM 133 mmol/L (136-145)
[2018-08-16 11:40] LABS: ALBUMIN 3.1 g/dL (3.4-5.0); ALKALINE PHOSPHATASE 61 U/L (46-116); SGOT 28 U/L (15-37); SGPT 37 U/L (30-65); TOTAL BILIRUBIN 0.6 mg/dL (<0.1-1.0); TOTAL PROTEIN 6.7 g/dL (6.4-8.2); TROPONIN-I LEVEL <0.06 ng/mL (<0.06)
[2018-08-16 12:00] LABS: ABSOLUTE BASOPHILS 0.1 thou/uL (0.0-0.2); ABSOLUTE EOSINOPHILS 0.1 thou/uL (0.0-0.7); ABSOLUTE LYMPHOCYTES 3.5 thou/uL (0.8-5.3); ABSOLUTE MONOCYTES 0.4 thou/uL (0.0-1.2); ABSOLUTE NEUTROPHILS 3.5 thou/uL (1.6-8.1)
[2018-08-16 12:02] LABS: PLATELET ESTIMATE ADEQUATE
[2018-08-16 12:29] LABS: URINE BILIRUBIN NEGATIVE (Negative); URINE BLOOD NEGATIVE (Negative); URINE CLARITY CLEAR; URINE COLOR YELLOW; URINE GLUCOSE-RANDOM 2+ (Negative); URINE KETONES TRACE (Negative); URINE LEUKOCYTES-REFLEX NEGATIVE (Negative); URINE NITRITE-REFLEX NEGATIVE (Negative); URINE PROTEIN NEGATIVE (Negative); URINE UROBILINOGEN 0.2 E.U./dl (0.2-1.0)
[2018-08-16] MEDS ORDERED: NORCO 5-325 TA1 EACH PO (13:31)
[2018-08-16] MEDS ORDERED: MEDROLDOSEPACK PO (13:31)
[2018-08-16] MEDS ORDERED: TORADOL 10 MG T10 MG PO (13:31)
[2018-08-16 14:03] VITALS: BP 159/79
--- NOTE | 2018-08-16 17:50 | EKG ---
[place] [address] ELECTROCARDIOGRAM REPORT Name: CORY CARUSO Room: [facility]#: [id number] Admission: 08/16/18 Attend Phys: Discharge: 08/16/18 Date of : 63 Report #: [id number] THIS REPORT FOR: //name// [facility] ED Test Date: 2018-08-16 Test Time: 11:16:46 Pat Name: CORY CARUSO Department: Room: Gender: F Carding Supervisor: OSWALDO GILES : 1965 Requested By: Tete Myers Order Number: [id number] MD: Russ Blackwood Measurements Intervals [place] Rate: 75 P: 11 DE: 151 QRS: -2 QRSD: 97 T: -18 QT: 393 QTc: 439 Interpretive Statements Sinus rhythm Borderline T abnormalities, diffuse leads Compared to ECG 02/01/2018 13:32:48 T-wave abnormality now present Left ventricular hypertrophy no longer present Electronically Signed On 08-16-2018 17:49:56 TIMBER SKIDDER by Russ Blackwood [email or web address] <ELECTRONICALLY SIGNED> By: Russ Blackwood MD, [facility] 08/16/18 1749 1116 1116 Russ Blackwood MD, [facility] /EPI
== END 2018-08-16 14:03 | disposition home or self-care (01) ==
LOC: M.ERS 10:21
PROVIDERS: Personal Emergency Response Attendant
DX: M79.605 Pain in left leg (principal); R06.02 Shortness of breath; R53.83 Other fatigue; R21 Rash and other nonspecific skin eruption

== ENCOUNTER 2018-09-02 07:33 | Emergency (ER) | payer BC ==
[~2018-09-02] VITALS: Ht 167.6 cm; Wt 92.1 kg
[~2018-09-02 07:33] MED LIST changes: +HYDROXYZINE HCL25 M1 PO; +METFORMIN HCL500 MG PO; +SERTRALINE HCL50 MG PO; +TORADOL 10 MG T10 MG PO
[2018-09-02] MEDS ORDERED: VITAMIN D (07:47)
[2018-09-02 09:00] LABS: URINE BILIRUBIN NEGATIVE (Negative); URINE BLOOD NEGATIVE (Negative); URINE CLARITY CLEAR; URINE COLOR YELLOW; URINE GLUCOSE-RANDOM 2+ (Negative); URINE KETONES NEGATIVE (Negative); URINE LEUKOCYTES-REFLEX NEGATIVE (Negative); URINE NITRITE-REFLEX NEGATIVE (Negative); URINE PROTEIN NEGATIVE (Negative); URINE UROBILINOGEN 0.2 E.U./dl (0.2-1.0)
[2018-09-02 09:12] LABS: ABSOLUTE EOSINOPHILS 0.2 thou/uL (0.0-0.7); ABSOLUTE LYMPHOCYTES 3.3 thou/uL (0.8-5.3); ABSOLUTE MONOCYTES 0.5 thou/uL (0.0-1.2); ABSOLUTE NEUTROPHILS 2.7 thou/uL (1.6-8.1); BASOPHILS 0.3 %; HEMOGLOBIN 13.7 gm/dL (12.0-15.0); MCV 88.5 fL (80.0-100.0); MPV 9.1 fl. (7.2-11.1); WBC 6.7 thou/uL (4.0-11.0)
[2018-09-02 09:14] LABS: HEMATOCRIT 40.7 % (37.0-47.0); LYMPHOCYTES 49.3 %; MCH 29.8 pg (26.0-34.0); MCHC 33.6 g/dL (28.0-37.0); NUCLEATED RBCS 0 /100WBC; PLATELET COUNT* 205 thou/uL (150-400); POLYS 40.4 %; RDW-CV 13.6 % (10.5-14.5)
[2018-09-02 09:17] LABS: ANION GAP 10 mmol/L (7-16); BUN 8 mg/dL (7-18); CALCIUM 8.3 mg/dL (8.5-10.1); CHLORIDE 104 mmol/L (98-107); CO2 27 mmol/L (21-32); CREATININE 0.8 mg/dL (0.6-1.3); GLUCOSE 194 mg/dL (70-99); POTASSIUM 3.4 mmol/L (3.5-5.1); SODIUM 141 mmol/L (136-145)
[2018-09-02 09:18] LABS: APTT 23.5 Seconds (25.0-31.3); PROTIME 9.8 Seconds (9.20-11.50)
[2018-09-02 09:23] LABS: ALBUMIN 2.6 g/dL (3.4-5.0); ALKALINE PHOSPHATASE 59 U/L (46-116); SGOT 37 U/L (15-37); SGPT 38 U/L (30-65); TOTAL BILIRUBIN 0.5 mg/dL (<0.1-1.0); TOTAL PROTEIN 6.1 g/dL (6.4-8.2); TROPONIN-I LEVEL <0.06 ng/mL (<0.06)
[2018-09-02 09:51] VITALS: BP 129/74
--- NOTE | 2018-09-02 13:01 | EKG ---
[place] [address] ELECTROCARDIOGRAM REPORT Name: CORY CARUSO Room: [facility]#: [id number] Admission: 09/02/18 Attend Phys: Discharge: 09/02/18 Date of : 63 Report #: [id number] THIS REPORT FOR: //name// [facility] ED Test Date: 2018-09-02 Test Time: 07:40:19 Pat Name: CORY CARUSO Department: Room: Gender: F Oyster Sorter: Karolina AREVALO : 1965 Requested By: Alberto Oneil Order Number: [id number] MD: Williams Sen Measurements Intervals [place] Rate: 86 P: 38 [place]: 134 QRS: 7 QRSD: 92 T: 3 QT: 393 QTc: 470 Interpretive Statements Sinus rhythm Compared to ECG 08/16/2018 11:16:46 T-wave abnormality no longer present Electronically Signed On 09-02-2018 13:00:48 PURCHASER by Williams Sen [email or web address] <ELECTRONICALLY SIGNED> By: Williams Sen MD, [facility] 09/02/18 1300 9 9 Williams Sen MD, [facility] /EPI
== END 2018-09-02 09:55 | disposition home or self-care (01) ==
LOC: M.ERS 07:33
PROVIDERS: Family Medicine
DX: S90.02XA Contusion of left ankle, initial encounter (principal); R20.2 Paresthesia of skin; E11.9 Type 2 diabetes mellitus without complications; G43.909 Migraine, unspecified, not intractable, without status migrainosus; M79.7 Fibromyalgia; J45.909 Unspecified asthma, uncomplicated; Z90.49 Acquired absence of other specified parts of digestive tract; Z86.718 Personal history of other venous thrombosis and embolism; Z88.1 Allergy status to other antibiotic agents; Z88.0 Allergy status to penicillin; Z91.030 Bee allergy status; Z88.8 Allergy status to other drugs, medicaments and biological substances; W18.30XA Fall on same level, unspecified, initial encounter; Y93.89 Activity, other specified; Y92.89 Other specified places as the place of occurrence of the external cause; Y99.8 Other external cause status

== ENCOUNTER → 2018-12-27 | Outpatient (CLI) | payer BC ==
[~2018-12-27] MED LIST changes: +VITAMIN D
== END | disposition home or self-care (01) ==
LOC: M.RAD 12-21 13:00
DX: M25.552 Pain in left hip (principal); M25.551 Pain in right hip; E11.9 Type 2 diabetes mellitus without complications; Z79.84 Long term (current) use of oral hypoglycemic drugs; Z86.73 Personal history of transient ischemic attack (TIA), and cerebral infarction without residual deficits; Z79.4 Long term (current) use of insulin; Z88.1 Allergy status to other antibiotic agents; Z88.8 Allergy status to other drugs, medicaments and biological substances; Z88.0 Allergy status to penicillin; Z79.82 Long term (current) use of aspirin

== ENCOUNTER → 2019-01-28 | Outpatient (CLI) | payer BC | LOC: M.RAD 13:17 | DX: G89.29 Other chronic pain (principal); M25.562 Pain in left knee ==

== ENCOUNTER → 2019-03-18 | Outpatient (CLI) | payer BC ==
[~2019-03-18] MED LIST changes: +ADDERALL 10 MG10 MG PO; +GABAPENTIN 100100 MG PO; +LAMICTAL100 MG PO; +LITHIUM CARBON300 M3 PO; +SEROQUEL 50 MG50 MG PO
== END ==
LOC: M.PC 02:17
DX: M47.816 Spondylosis without myelopathy or radiculopathy, lumbar region (principal); M51.36 Other intervertebral disc degeneration, lumbar region; M12.88 Other specific arthropathies, not elsewhere classified, other specified site; M47.898 Other spondylosis, sacral and sacrococcygeal region; M51.37 Other intervertebral disc degeneration, lumbosacral region; I70.0 Atherosclerosis of aorta

== ENCOUNTER → 2019-04-03 | Outpatient (CLI) | payer BC ==
[~2019-04-03] MED LIST changes: +ACCUNEB SO1.25 MG/1 INH; -GABAPENTIN 100100 MG PO; +MOBIC15 MG PO; +NEURONTIN 300300 M1 PO; -VITAMIN D; +VITAMIN D PO; +WELCHOL 625 MG625 MG PO
== END | disposition home or self-care (01) ==
LOC: M.PC 05:20
DX: M51.36 Other intervertebral disc degeneration, lumbar region (principal); M47.816 Spondylosis without myelopathy or radiculopathy, lumbar region; M53.3 Sacrococcygeal disorders, not elsewhere classified; M50.10 Cervical disc disorder with radiculopathy, unspecified cervical region; M47.22 Other spondylosis with radiculopathy, cervical region; E11.9 Type 2 diabetes mellitus without complications; M19.90 Unspecified osteoarthritis, unspecified site; M79.7 Fibromyalgia; J45.909 Unspecified asthma, uncomplicated; Z90.49 Acquired absence of other specified parts of digestive tract; Z98.890 Other specified postprocedural states; Z79.899 Other long term (current) drug therapy; Z86.73 Personal history of transient ischemic attack (TIA), and cerebral infarction without residual deficits; Z86.718 Personal history of other venous thrombosis and embolism; Z79.01 Long term (current) use of anticoagulants; Z88.0 Allergy status to penicillin; Z88.8 Allergy status to other drugs, medicaments and biological substances; Z87.19 Personal history of other diseases of the digestive system; Z87.440 Personal history of urinary (tract) infections

== ENCOUNTER → 2019-04-04 | Outpatient (CLI) | payer BC ==
[~2019-04-04] VITALS: Ht 165.1 cm; Wt 83.9 kg
[2019-04-04 09:18] LABS: ABSOLUTE BASOPHILS 0.1 thou/uL (0.0-0.2); ABSOLUTE EOSINOPHILS 0.3 thou/uL (0.0-0.7); ABSOLUTE LYMPHOCYTES 3.2 thou/uL (0.8-5.3); ABSOLUTE MONOCYTES 0.6 thou/uL (0.0-1.2); ABSOLUTE NEUTROPHILS 3.1 thou/uL (1.6-8.1); BASOPHILS 1.4 %; EOSINOPHILS 3.8 %; HEMATOCRIT 42.1 % (37.0-47.0); HEMOGLOBIN 14.1 gm/dL (12.0-15.0); LYMPHOCYTES 44.4 %; MCH 29.8 pg (26.0-34.0); MCHC 33.4 g/dL (28.0-37.0); MCV 89.2 fL (80.0-100.0); MONOCYTES 7.8 %; NUCLEATED RBCS 0 /100WBC; PLATELET COUNT* 258 thou/uL (150-400); POLYS 42.6 %; RBC 4.72 mil/uL (4.20-5.00); RDW-CV 13.8 % (10.5-14.5); WBC 7.2 thou/uL (4.0-11.0)
[2019-04-04 09:37] LABS: CALCIUM 9.2 mg/dL (8.5-10.1); CREATININE 0.9 mg/dL (0.6-1.3)
[2019-04-04 09:42] LABS: ALBUMIN 3.4 g/dL (3.4-5.0); TOTAL BILIRUBIN 0.9 mg/dL (<0.1-1.0)
[2019-04-04 09:44] LABS: APTT 24.5 Seconds (25.0-31.3); PROTIME 10.1 Seconds (9.20-11.50)
[2019-04-04 10:21] LABS: ESR (SEDRATE) 20 mm/hr (0-30)
--- NOTE | 2019-04-04 16:33 | EKG ---
[place] [address] ELECTROCARDIOGRAM REPORT Name: CORY CARUSO Room: [facility]#: [id number] Admission: Attend Phys: Malcolm Renee DO Discharge: Date of : 63 Report #: [id number] THIS REPORT FOR: //name// [facility] Test Date: 2019-04-04 Test Time: 09:42:48 Pat Name: CORY CARUSO Department: Room: Gender: F Bit Sharpener Operator: SAVANNA : 1965 Requested By: Malcolm Renee Order Number: [id number] Reading MD: Russ Blackwood Measurements Intervals [place] Rate: 92 P: 31 SC: 159 QRS: 3 QRSD: 96 T: -9 QT: 372 QTc: 461 Interpretive Statements Sinus rhythm Possible anteroseptal infarct, old Borderline T abnormalities, inferior leads Compared to ECG 09/02/2018 07:40:19 Myocardial infarct finding now present T-wave abnormality now present Electronically Signed On 04-04-2019 16:33:04 CDT by Russ Blackwood [email or web address] <ELECTRONICALLY SIGNED> By: Russ Blackwood MD, [facility] 04/04/19 1633 Russ Blackwood MD, FAC /EPI
== END | disposition home or self-care (01) ==
LOC: M.LAB 08:00 → M.SUR 04-15 07:35 → EDSTATUS 04-15 10:02 → M.SUR 04-15 10:38
PROVIDERS: Orthopaedic Surgery
DX: M17.12 Unilateral primary osteoarthritis, left knee (principal); Z53.8 Procedure and treatment not carried out for other reasons; G89.29 Other chronic pain; E11.9 Type 2 diabetes mellitus without complications; M79.7 Fibromyalgia; F31.9 Bipolar disorder, unspecified; G35 Multiple sclerosis; F03.90 Unspecified dementia, unspecified severity, without behavioral disturbance, psychotic disturbance, mood disturbance, and anxiety; Z98.890 Other specified postprocedural states; Z79.899 Other long term (current) drug therapy; Z86.73 Personal history of transient ischemic attack (TIA), and cerebral infarction without residual deficits; Z87.19 Personal history of other diseases of the digestive system; Z90.49 Acquired absence of other specified parts of digestive tract; Z87.01 Personal history of pneumonia (recurrent); Z88.0 Allergy status to penicillin; Z88.8 Allergy status to other drugs, medicaments and biological substances

== ENCOUNTER 2019-05-05 21:01 | Emergency (ER) | payer BC ==
[~2019-05-05] VITALS: Ht 165.1 cm; Wt 81.7 kg
[2019-05-05 21:36] LABS: ABSOLUTE BASOPHILS 0.1 thou/uL (0.0-0.2); ABSOLUTE EOSINOPHILS 0.4 thou/uL (0.0-0.7); ABSOLUTE LYMPHOCYTES 3.5 thou/uL (0.8-5.3); ABSOLUTE MONOCYTES 0.5 thou/uL (0.0-1.2); ABSOLUTE NEUTROPHILS 3.9 thou/uL (1.6-8.1); BASOPHILS 0.8 %; EOSINOPHILS 4.3 %; HEMATOCRIT 41.3 % (37.0-47.0); HEMOGLOBIN 13.7 gm/dL (12.0-15.0); LYMPHOCYTES 42.4 %; MCH 29.6 pg (26.0-34.0); MCHC 33.3 g/dL (28.0-37.0); MCV 89.2 fL (80.0-100.0); MPV 8.6 fl. (7.2-11.1); NUCLEATED RBCS 0 /100WBC; PLATELET COUNT* 277 thou/uL (150-400); POLYS 46.5 %; RBC 4.64 mil/uL (4.20-5.00); RDW-CV 13.2 % (10.5-14.5); WBC 8.3 thou/uL (4.0-11.0)
[2019-05-05 21:43] LABS: ANION GAP 7 mmol/L (7-16); BUN 20 mg/dL (7-18); CALCIUM 8.5 mg/dL (8.5-10.1); CHLORIDE 99 mmol/L (98-107); CO2 27 mmol/L (21-32); CREATININE 0.9 mg/dL (0.6-1.3); GLUCOSE 293 mg/dL (70-99); POTASSIUM 3.8 mmol/L (3.5-5.1); SODIUM 133 mmol/L (136-145)
[2019-05-05 21:46] LABS: APTT 23.1 Seconds (25.0-31.3)
[2019-05-05 21:55] LABS: ALBUMIN 3.3 g/dL (3.4-5.0); ALKALINE PHOSPHATASE 64 U/L (46-116); LIPASE 77 U/L (73-393); MAGNESIUM 1.5 mg/dL (1.8-2.4); NT-PRO BRAIN NAT PEPTIDE 40 pg/mL (<300); SGOT 21 U/L (15-37); SGPT 27 U/L (30-65); TOTAL BILIRUBIN 0.6 mg/dL (<0.1-1.0); TROPONIN-I LEVEL <0.06 ng/mL (<0.06)
[2019-05-05 22:25] LABS: CK-MB MASS 0.9 ng/mL (<0.5-3.6)
[2019-05-06 00:13] VITALS: BP 132/75
--- NOTE | 2019-05-06 17:11 | EKG ---
[place] [address] ELECTROCARDIOGRAM REPORT Name: CORY CARUSO Room: [facility]#: [id number] Admission: 05/05/19 Attend Phys: Discharge: 05/06/19 Date of : 63 Report #: [id number] THIS REPORT FOR: //name// [facility] ED Test Date: 2019-05-05 Test Time: 21:04:29 Pat Name: CORY CARUSO Department: Room: Gender: F Manager Auto: SKIP : 1965 Requested By: Alberto Oneil Order Number: [id number] MD: Malcolm Sneed Measurements Intervals [place] Rate: 105 P: 26 [place]: 141 QRS: -9 QRSD: 93 T: -15 QT: 346 QTc: 458 Interpretive Statements Sinus tachycardia nonspecific t wave changes Compared to ECG 04/04/2019 09:42:48 Sinus rhythm no longer present Electronically Signed On 05-06-2019 17:11:38 CDT by Malcolm Sneed [email or web address] <ELECTRONICALLY SIGNED> By: Malcolm Sneed MD, [facility] 05/06/19 1711 03 03 Malcolm Sneed MD, FACC /EPI
== END 2019-05-06 00:14 | disposition home or self-care (01) ==
LOC: M.ERS 21:01
PROVIDERS: Family Medicine
DX: R07.89 Other chest pain (principal); M79.7 Fibromyalgia; E11.9 Type 2 diabetes mellitus without complications; F31.9 Bipolar disorder, unspecified; F41.9 Anxiety disorder, unspecified; Z90.13 Acquired absence of bilateral breasts and nipples; Z88.1 Allergy status to other antibiotic agents; Z88.0 Allergy status to penicillin; Z91.030 Bee allergy status; Z90.49 Acquired absence of other specified parts of digestive tract; Z79.4 Long term (current) use of insulin

== ENCOUNTER → 2019-05-27 | Outpatient (CLI) | payer BC | LOC: M.RAD 14:20 | DX: M54.12 Radiculopathy, cervical region (principal); M25.78 Osteophyte, vertebrae; I65.23 Occlusion and stenosis of bilateral carotid arteries ==

== ENCOUNTER → 2019-06-06 | Outpatient (CLI) | payer BC | LOC: M.MRI 06:53 | DX: M50.122 Cervical disc disorder at C5-C6 level with radiculopathy (principal); M75.102 Unspecified rotator cuff tear or rupture of left shoulder, not specified as traumatic; M25.811 Other specified joint disorders, right shoulder; M19.011 Primary osteoarthritis, right shoulder; M25.711 Osteophyte, right shoulder; M75.81 Other shoulder lesions, right shoulder ==

== ENCOUNTER → 2019-10-14 | Outpatient (CLI) | payer BC | END | disposition home or self-care (01) | LOC: M.PC 10-02 08:50 | DX: M50.122 Cervical disc disorder at C5-C6 level with radiculopathy (principal); M48.02 Spinal stenosis, cervical region; M47.22 Other spondylosis with radiculopathy, cervical region; M54.2 Cervicalgia; E11.9 Type 2 diabetes mellitus without complications; J45.909 Unspecified asthma, uncomplicated; M19.90 Unspecified osteoarthritis, unspecified site; Z98.890 Other specified postprocedural states; Z79.899 Other long term (current) drug therapy; Z86.73 Personal history of transient ischemic attack (TIA), and cerebral infarction without residual deficits; Z90.49 Acquired absence of other specified parts of digestive tract; Z88.0 Allergy status to penicillin; Z88.8 Allergy status to other drugs, medicaments and biological substances ==

== ENCOUNTER → 2019-11-04 | Outpatient (CLI) | payer BC, MEDICARE | LOC: M.ULTRA 01:33 | DX: E04.1 Nontoxic single thyroid nodule (principal); F31.9 Bipolar disorder, unspecified; F41.9 Anxiety disorder, unspecified; R13.12 Dysphagia, oropharyngeal phase; E11.9 Type 2 diabetes mellitus without complications; J45.901 Unspecified asthma with (acute) exacerbation; I45.81 Long QT syndrome; F01.50 Vascular dementia, unspecified severity, without behavioral disturbance, psychotic disturbance, mood disturbance, and anxiety ==

== ENCOUNTER → 2019-11-11 | Outpatient (CLI) | payer BC, MEDICARE ==
[~2019-11-11] MED LIST changes: +CLOPIDOGREL75 MG PO; +DESYREL150 MG PO; +LIPITOR40 MG PO; +ROBAXIN 750 MG750 MG PO
== END ==
LOC: M.PC 03:45
DX: M47.816 Spondylosis without myelopathy or radiculopathy, lumbar region (principal); M51.26 Other intervertebral disc displacement, lumbar region; M12.88 Other specific arthropathies, not elsewhere classified, other specified site; M47.22 Other spondylosis with radiculopathy, cervical region; M50.122 Cervical disc disorder at C5-C6 level with radiculopathy; M50.123 Cervical disc disorder at C6-C7 level with radiculopathy

== ENCOUNTER 2019-11-14 16:38 | Inpatient (IN) | payer BC, MEDICARE ==
[~2019-11-14] VITALS: Ht 162.6 cm; Wt 73.9 kg
[~2019-11-14 16:38] MED LIST changes: -CLOPIDOGREL75 MG PO; -DESYREL150 MG PO; -LIPITOR40 MG PO; -ROBAXIN 750 MG750 MG PO
[2019-11-14 16:58] LABS: ABSOLUTE BASOPHILS 0.1 thou/uL (0.0-0.2); ABSOLUTE EOSINOPHILS 0.1 thou/uL (0.0-0.7); ABSOLUTE LYMPHOCYTES 3.2 thou/uL (0.8-5.3); ABSOLUTE MONOCYTES 0.6 thou/uL (0.0-1.2); BASOPHILS 1.2 %; HEMATOCRIT 44.9 % (37.0-47.0); HEMOGLOBIN 14.9 gm/dL (12.0-15.0); LYMPHOCYTES 35.6 %; MCH 29.8 pg (26.0-34.0); MCHC 33.1 g/dL (28.0-37.0); MCV 90.1 fL (80.0-100.0); MPV 8.7 fl. (7.2-11.1); NUCLEATED RBCS 0 /100WBC; PLATELET COUNT* 289 thou/uL (150-400); POLYS 55.2 %; RBC 4.99 mil/uL (4.20-5.00)
[2019-11-14 17:09] LABS: APTT 18.3 Seconds (25.0-31.3); PROTIME 10.7 Seconds (9.20-11.50)
[2019-11-14 17:22] LABS: CALCIUM 8.4 mg/dL (8.5-10.1); CREATININE 0.7 mg/dL (0.6-1.3); POTASSIUM 4.2 mmol/L (3.5-5.1)
[2019-11-14 17:26] LABS: ALBUMIN 3.4 g/dL (3.4-5.0); TOTAL BILIRUBIN 1.1 mg/dL (<0.1-1.0); TOTAL PROTEIN 7.4 g/dL (6.4-8.2)
[2019-11-14] MEDS ORDERED: ROBAXIN 750 MG750 MG PO (18:08)
[2019-11-14] MEDS ORDERED: DESYREL150 MG PO (18:09)
[2019-11-14] MEDS ORDERED: TRAMADOL 50 MG50 MG PO (18:09)
[2019-11-14 19:24] VITALS: BP 166/91
[2019-11-14 21:20] VITALS: BP 142/85
[2019-11-14 21:25] VITALS: BP 156/78
[2019-11-14 22:00] VITALS: BP 147/85
[2019-11-14 23:00] VITALS: BP 140/89
[2019-11-15] VITALS (25 sets, daily range): BP systolic 90–156; BP diastolic 51–100
[2019-11-15 01:00] LABS: URINE BILIRUBIN NEGATIVE (Negative); URINE BLOOD NEGATIVE (Negative); URINE CLARITY CLEAR; URINE COLOR YELLOW; URINE GLUCOSE-RANDOM 3+ (Negative); URINE KETONES 1+ (Negative); URINE LEUKOCYTES NEGATIVE (Negative); URINE NITRITE POSITIVE (Negative); URINE PROTEIN NEGATIVE (Negative); URINE UROBILINOGEN 0.2 E.U./dl (0.2-1.0)
[2019-11-15 01:17] LABS: BACTERIA >30 Many /HPF (None Seen); CRYSTALS None Seen /LPF (None Seen); HYALINE CASTS 0-3 Few /LPF (None Seen); MUCUS 0-3 Light strn/LPF (None Seen); SQUAMOUS 0-3 Few /LPF (0-3); URINE RBC 3-10 Few /HPF (0-2); URINE WBC 6-15 Few /HPF (0-5); WBC CLUMPS Few (None Seen)
[2019-11-15 06:21] LABS: HEMATOCRIT 40.6 % (37.0-47.0); HEMOGLOBIN 13.8 gm/dL (12.0-15.0); MCH 30.2 pg (26.0-34.0); MCV 89.1 fL (80.0-100.0); MPV 8.6 fl. (7.2-11.1); RBC 4.55 mil/uL (4.20-5.00); RDW-CV 13.5 % (10.5-14.5); WBC 7.7 thou/uL (4.0-11.0)
[2019-11-15 06:39] LABS: CALCIUM 8.3 mg/dL (8.5-10.1); CREATININE 0.8 mg/dL (0.6-1.3); POTASSIUM 3.7 mmol/L (3.5-5.1)
--- NOTE | 2019-11-15 09:40 | EKG ---
[place] [address] ELECTROCARDIOGRAM REPORT Name: CORY CARUSO Room: [address] IN .R.#: [id number] Admission: 11/14/19 Attend Phys: Robin Ramos Discharge: Date of : 63 Date of Service: 11/14/19 1708 Report #: [id number] THIS REPORT FOR: //name// [facility] ED Test Date: 2019-11-14 Test Time: 17:08:03 Pat Name: CORY CARUSO Department: Room: [facility] Gender: F Research Manager: ISAAC : 1965 Requested By: Juve Nascimento Order Number: [id number] MD: Malcolm Sneed Measurements Intervals [place] Rate: 89 P: 36 [place]: 140 QRS: -5 QRSD: 96 T: -7 QT: 371 QTc: 452 Interpretive Statements Sinus rhythm Probable septal infarct, old Borderline T abnormalities, inferior leads Compared to ECG 05/05/2019 21:04:29 Sinus tachycardia no longer present T-wave abnormality still present Electronically Signed On 11-15-2019 9:39:49 CHANGE BOOTH ATTENDANT by Malcolm Sneed [email or web address] <ELECTRONICALLY SIGNED> By: Malcolm Sneed MD, FAC 11/15/19 0939 1708 1708 Malcolm Sneed MD, FAC /EPI
--- NOTE | 2019-11-15 09:54 | 2DMMODE ---
[place] [address] 2 D/M-MODE ECHOCARDIOGRAM Name: CORY CARUSO Room: [address] IN ..#: [id number] Admission: 11/14/19 Attend Phys: Robin Ramos Discharge: Date of : 63 Date of Service: 11/15/19 0953 Report #: [id number] THIS REPORT FOR: cc: Malcolm Prince MD, David L. MD Blick, David R. MD [facility] ~ ADDENDUM APPROVED REPORT Study performed: 11/15/2019 08:47:27 EXAM: Comprehensive 2D, Doppler, and color-flow Echocardiogram Patient Location: In-Patient Room #: 002 Status: routine BSA: 1.79 HR: 78 bpm BP: 106/68 mmHg Rhythm: NSR Other Information Study Quality: Good Indications CVA/TIA Echo Enhancing Agent Indication: Rule out Shunt Agent(s) / Amount(s) Used: Agitated Saline 10 cc 2D Dimensions IVSd: 11.25 (7-11mm) LVOT Diam: 18.87 (18-24mm) LVDd: 42.11 mm PWd: 10.74 (7-11mm) Ascending Ao: 34.56 (22-36mm) LVDs: 23.32 (25-40mm) Aortic Root: 31.32 mm Volumes Left Atrial Volume (Systole) LA ESV Index: 14.70 mL/m2 Aortic Valve AoV Peak David.: 1.05 m/s AO Peak Gr.: 4.42 mmHg LVOT Max P.99 mmHg AO Mean Gr.: 2.45 mmHg LVOT Mean P[place]81 [place] [address] 2 D/M-MODE ECHOCARDIOGRAM Name: CORY CARUSO Room: [address] IN ..#: [id number] Admission: 11/14/19 Attend Phys: Robin Ramos Discharge: Date of : 63 Date of Service: 11/15/19 0953 Report #: [id number] LVOT Max V: 1.00 m/s AO V2 VTI: 20.23 cm LVOT Mean V: 0.60 m/s QUE (VTI): 2.80 cm2 LVOT V1 VTI: 20.29 cm Mitral Valve E/A Ratio: 0.72 MV Decel. Time: 281.78 ms MV E Max David.: 0.58 m/s MV PHT: 81.72 ms MVA (PHT): 2.69 cm2 TDI E/Lateral E': 7.25 E/Medial E': 9.67 Medial E' David.: 0.06 m/s Lateral E' David.: 0.08 m/s Pulmonary Valve PV Peak David.: 0.75 m/s PV Peak Gr.: 2.22 mmHg Left Ventricle The left ventricle is normal size. There is normal LV segmental wall motion. There is normal left ventricular wall thickness. Left ventricular systolic function is normal. The left ventricular ejection fraction is within the normal range. LVEF is 55-60%. Grade I - abnormal relaxation pattern. Right Ventricle The right ventricle is normal size. The right ventricular systolic function is normal. Atria The left atrium size is normal. The interatrial septum is intact with no evidence for an atrial septal defect. The right atrium size is normal. Aortic Valve The aortic valve is normal in structure. No aortic regurgitation is present. There is no aortic valvular stenosis. Mitral Valve The mitral valve is normal in structure. There is no mitral valve regurgitation noted. No evidence of mitral valve stenosis. Tricuspid Valve The tricuspid valve is normal in structure. There is no tricuspid [place] [address] 2 D/M-MODE ECHOCARDIOGRAM Name: CORY CARUSO Room: [address] IN ..#: [id number] Admission: 11/14/19 Attend Phys: Robin Ramos Discharge: Date of : 63 Date of Service: 11/15/19 0953 Report #: [id number] Pulmonic Valve The pulmonary valve is normal in structure. There is no pulmonic valvular regurgitation. Great Vessels The aortic root is normal in size. IVC is normal in size and collapses >50% with inspiration. Pericardium There is no pericardial effusion. <Conclusion> LVEF is 55-60%. The interatrial septum is intact with no evidence for an atrial septal defect. <ELECTRONICALLY SIGNED> By: Malcolm Sneed MD, FACC 11/15/19 0953 2 Malcolm Sneed MD, FACC /INF
[2019-11-15 10:32] LABS: CHOLESTEROL 172 mg/dL (<200); HDL CHOLESTEROL 47 mg/dL (>40); LDL CHOLESTEROL 73 mg/dL (<100); SERUM ASSESSMENT Clear; TC:HDL 3.7 Ratio (Not establshd); TRIGLYCERIDE 262 mg/dL (<150); VLDL 52 mg/dL (<40)
[2019-11-16] VITALS (9 sets, daily range): BP systolic 102–128; BP diastolic 57–83
[2019-11-16 02:11] LABS: GLYCOHEMOGLOBIN (HGB A1C) 12.5 % (4.8-5.6)
[2019-11-16] MEDS ORDERED: LIPITOR40 MG PO (07:30)
[2019-11-16] MEDS ORDERED: METFORMIN HCL500 MG PO (07:30)
[2019-11-16] MEDS ORDERED: CLOPIDOGREL75 MG PO (07:30)
[2019-11-16] MEDS ORDERED: PROTONIX40 M4 PO (09:23)
[2019-11-19 11:09] LABS: ANA INTERPRETATION Negative (())
== END 2019-11-16 11:24 | disposition home or self-care (01) | DRG 62 ==
LOC: M.ERS 16:38 → M.ICU 20:38 → M.TBA-ER 20:38 → M.ICU 20:51
PROVIDERS: Emergency Medicine Emergency Medical Services; Internal Medicine; Psychiatry & Neurology Neurology; ADMIT Internal Medicine
DX: I63.9 Cerebral infarction, unspecified (principal); G81.94 Hemiplegia, unspecified affecting left nondominant side; F11.20 Opioid dependence, uncomplicated; G31.09 Other frontotemporal neurocognitive disorder; F02.80 Dementia in other diseases classified elsewhere, unspecified severity, without behavioral disturbance, psychotic disturbance, mood disturbance, and anxiety; M79.7 Fibromyalgia; F31.9 Bipolar disorder, unspecified; F41.9 Anxiety disorder, unspecified; R29.810 Facial weakness; G89.29 Other chronic pain; G47.00 Insomnia, unspecified; E11.65 Type 2 diabetes mellitus with hyperglycemia; Z90.49 Acquired absence of other specified parts of digestive tract; Z79.899 Other long term (current) drug therapy; Z79.84 Long term (current) use of oral hypoglycemic drugs; Z79.4 Long term (current) use of insulin; Z79.82 Long term (current) use of aspirin; Z79.51 Long term (current) use of inhaled steroids; Z88.1 Allergy status to other antibiotic agents; Z88.0 Allergy status to penicillin; Z88.8 Allergy status to other drugs, medicaments and biological substances; Z91.030 Bee allergy status; Z82.49 Family history of ischemic heart disease and other diseases of the circulatory system; Z82.3 Family history of stroke

== ENCOUNTER 2019-12-03 18:08 | Inpatient (IN) | payer BC, MEDICARE ==
[~2019-12-03] VITALS: Ht 165.1 cm; Wt 76.7 kg
[~2019-12-03 18:08] MED LIST changes: +CLOPIDOGREL75 MG PO; +DESYREL150 MG PO; +LIPITOR40 MG PO; +ROBAXIN 750 MG750 MG PO
[2019-12-03 18:15] VITALS: BP 153/88
--- NOTE | 2019-12-03 18:15 | NUR ---
PT ARRIVED VIA EMS, WENT STRAIGHT TO CT. [address] PERFORMED [address] GORDILLO AT BEDSIDE AT 1827 AND [facility] PERGORMED TO CT FOR CTA AT [address] 192
[2019-12-03 18:34] LABS: HEMATOCRIT 42.3 % (37.0-47.0); HEMOGLOBIN 14.4 gm/dL (12.0-15.0); MCH 30.2 pg (26.0-34.0); MCHC 33.9 g/dL (28.0-37.0); MCV 89.1 fL (80.0-100.0); MPV 8.3 fl. (7.2-11.1); RBC 4.75 mil/uL (4.20-5.00); RDW-CV 14.2 % (10.5-14.5)
[2019-12-03 18:43] LABS: CALCIUM 9.5 mg/dL (8.5-10.1); CREATININE 0.7 mg/dL (0.6-1.3); POTASSIUM 4.2 mmol/L (3.5-5.1)
[2019-12-03 18:47] LABS: ALBUMIN 3.4 g/dL (3.4-5.0); TOTAL BILIRUBIN 0.5 mg/dL (<0.1-1.0); TOTAL PROTEIN 7.5 g/dL (6.4-8.2)
[2019-12-03 18:55] LABS: INR 0.9; PROTIME 9.6 Seconds (9.20-11.50)
[2019-12-03 20:52] LABS: BACTERIA >30 Many /HPF (None Seen); CASTS None Seen /LPF (None Seen); CRYSTALS None Seen /LPF (None Seen); SQUAMOUS 0-3 Few /LPF (0-3); URINE RBC 0-2 Rare /HPF (0-2)
[2019-12-03 20:53] LABS: URINE CLARITY CLEAR; URINE COLOR YELLOW
[2019-12-03 21:06] LABS: URINE BILIRUBIN NEGATIVE (Negative); URINE BLOOD NEGATIVE (Negative); URINE GLUCOSE-RANDOM 3+ (Negative); URINE KETONES NEGATIVE (Negative); URINE LEUKOCYTES NEGATIVE (Negative); URINE NITRITE POSITIVE (Negative); URINE PROTEIN NEGATIVE (Negative); URINE UROBILINOGEN 0.2 E.U./dl (0.2-1.0)
[2019-12-03 22:35] VITALS: BP 124/88
[2019-12-03 22:51] VITALS: BP 126/74
--- NOTE | 2019-12-04 03:56 | NUR ---
ASSUMED CARE OF PT AT 2245. PT IS ALERT AND ORIENTED. VSS. PERRLA. PT REPORTS ONGOING PAIN. PT RECIEVING HYDROCODONE FOR PAIN. NIH IS A 1 FOR NUMBNESS ON LEFT SIDE OF FACE. PT IS IN SINUS RYTHM ON THE TELEMETRY. PT IS RESTING COMFORTABLY IN BED. RESPIRATIONS ARE EVEN AND NONLABORED. WILL CONTINUE TO MONITOR PT.
[2019-12-04 04:00] VITALS: BP 135/69
[2019-12-04 08:00] VITALS: BP 108/76
--- NOTE | 2019-12-04 10:51 | EKG ---
[place] [address] ELECTROCARDIOGRAM REPORT Name: CORY CHIN Room: [address] ADM IN ..#: [id number] Admission: 12/03/19 Attend Phys: Kenisha Chin, Discharge: Date of : 63 Date of Service: 12/03/191936 Report #: [id number] THIS REPORT FOR: //name// [facility] ED Test Date: 2019-12-03 Test Time: 19:37:59 Pat Name: CORY CHIN Department: Room: [facility] Gender: F Sample Prep Technician: : 1965 Requested By: Edmundo Singh Order Number: [id number] MD: Malcolm Sneed Measurements Intervals [place] Rate: 87 P: 37 [place]: 152 QRS: 0 QRSD: 95 T: 5 QT: 371 QTc: 447 Interpretive Statements Sinus rhythm Compared to ECG 11/14/2019 17:08:03 Myocardial infarct finding no longer present Electronically Signed On 12-04-2019 10:50:19 CDT by Malcolm Sneed [email or web address] <ELECTRONICALLY SIGNED> By: Malcolm Sneed MD, FAC 12/04/19 1050 36 36 Malcolm Sneed MD, [facility] /EPI
--- NOTE | 2019-12-04 11:30 | NUR ---
CM COMPLETED INITIAL ASSESSMENT TO DISCUSS D/C PLAN. PT LIVES AT HOME W/HER SPOUSE. STATES SHE HAS A GOOD SUPPORT SYSTEM. PT IS DISABLED. STATES SHE IS ACVITVE AND INDEPENDENT W/ADLS. PT HAS WALKER, ELECTRIC W/C AND CANE. PT HAS HX W/ SPECIALIZED HH. HX W/[facility], [facility] AND [facility] OUTPT THERAPY, PER CHART NOTE. CM TO CONT TO FOLLOW.
[2019-12-04 13:05] VITALS: BP 116/63
[2019-12-04 16:06] VITALS: BP 116/63
--- NOTE | 2019-12-04 16:29 | NUR ---
PT VSS, SR ON TELE, ROOM AIR, UP AD LOUIE, HOURLY ROUNDING PERFORMED, POSSESSIONS AND CALL LIGHT WITHIN REACH. REC. DISCHARGE ORDERS, REVIEWED WITH PATIENT, REMOVED TELE MONITOR AND IV WITHOUT COMPLICATION. PATIENT TAKEN TO FRONT DOOR IN WHEELCHAIR BY NURSING STAFF, PICKED UP BY SPOUSE IN FAMILY CAR
[2019-12-04 17:23] VITALS: BP 106/66
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
== END 2019-12-04 16:45 | disposition home or self-care (01) | DRG 638 ==
LOC: M.ERS 18:08 → M.TBA-ER 21:08 → M.2W 21:08
PROVIDERS: Emergency Medicine; ADMIT Internal Medicine
DX: E11.65 Type 2 diabetes mellitus with hyperglycemia (principal); E87.1 Hypo-osmolality and hyponatremia; I10 Essential (primary) hypertension; G89.29 Other chronic pain; M54.9 Dorsalgia, unspecified; F31.9 Bipolar disorder, unspecified; M79.7 Fibromyalgia; G47.00 Insomnia, unspecified; Z88.6 Allergy status to analgesic agent; Z88.1 Allergy status to other antibiotic agents; Z86.73 Personal history of transient ischemic attack (TIA), and cerebral infarction without residual deficits; Z88.0 Allergy status to penicillin; Z88.8 Allergy status to other drugs, medicaments and biological substances

== ENCOUNTER → 2020-02-26 | Outpatient (CLI) | payer BC, MEDICARE ==
[~2020-02-26] MED LIST changes: +LORCET 5-325 M1 EACH PO; +NEURONTIN 300M300 M2 PO; +OXYCODONE HCL 55 MG PO; +OXYCODONE HCL5 M1 PO; +PERCOCET 5-3251 EACH PO; +VOLTAREN GEL 1100 G1 TOP
== END | disposition home or self-care (01) ==
LOC: M.PC 04:23
PROVIDERS: ATTEND Physical Medicine & Rehabilitation
DX: M50.322 Other cervical disc degeneration at C5-C6 level (principal); M47.812 Spondylosis without myelopathy or radiculopathy, cervical region; M48.02 Spinal stenosis, cervical region; M51.16 Intervertebral disc disorders with radiculopathy, lumbar region; M47.819 Spondylosis without myelopathy or radiculopathy, site unspecified; M53.3 Sacrococcygeal disorders, not elsewhere classified; E11.9 Type 2 diabetes mellitus without complications; G43.909 Migraine, unspecified, not intractable, without status migrainosus; J45.909 Unspecified asthma, uncomplicated; M79.7 Fibromyalgia; M19.90 Unspecified osteoarthritis, unspecified site; Z98.890 Other specified postprocedural states; Z79.899 Other long term (current) drug therapy; Z90.49 Acquired absence of other specified parts of digestive tract; Z86.73 Personal history of transient ischemic attack (TIA), and cerebral infarction without residual deficits

== ENCOUNTER → 2020-03-04 | Outpatient (CLI) | payer BC, MEDICARE | END | disposition home or self-care (01) | LOC: M.PC 04:37 | PROVIDERS: ATTEND Physical Medicine & Rehabilitation | DX: M47.812 Spondylosis without myelopathy or radiculopathy, cervical region (principal); E11.9 Type 2 diabetes mellitus without complications; J45.909 Unspecified asthma, uncomplicated; G43.909 Migraine, unspecified, not intractable, without status migrainosus; M79.7 Fibromyalgia; Z98.890 Other specified postprocedural states; Z79.899 Other long term (current) drug therapy; Z86.73 Personal history of transient ischemic attack (TIA), and cerebral infarction without residual deficits; Z90.49 Acquired absence of other specified parts of digestive tract; Z79.82 Long term (current) use of aspirin; Z88.0 Allergy status to penicillin; Z88.8 Allergy status to other drugs, medicaments and biological substances ==

== ENCOUNTER → 2020-03-11 | Outpatient (CLI) | payer BC | LOC: M.LAB 07:59 | PROVIDERS: ATTEND Physical Medicine & Rehabilitation | DX: Z11.59 Encounter for screening for other viral diseases (principal) ==

== ENCOUNTER 2020-03-23 09:13 | Observation (INO) | payer BC ==
[~2020-03-23] VITALS: Ht 165.1 cm; Wt 74.8 kg
--- NOTE | ~2020-03-23 | OP ---
[facility] [address] [place] [address] OPERATIVE REPORT Name: CORY CARUSO Room: [address] M.R.#: [id number] Admission: 03/23/20 Attend Phys: Claudia Mcdermott Discharge: Date of : 63 Report #: [id number] THIS REPORT FOR: //name// cc: Malcolm Prince MD, David L. MD ~ THIS REPORT FOR: //name// CC: Malcolm Ramos DICTATED BY: Wilfred Yo DO DATE OF SERVICE: 03/23/2020 PREOPERATIVE DIAGNOSIS: Right shoulder rotator cuff tear. POSTOPERATIVE DIAGNOSIS: Right shoulder rotator cuff tear. PROCEDURE PERFORMED: Right shoulder arthroscopic rotator cuff repair. SURGEON: Malcolm Renee DO. ASSISTANTS: Wilfred Yo DO and Yoni Jerry DO. ANESTHESIA: General. ESTIMATED BLOOD LOSS: 10 mL. ANTIBIOTICS: 2 grams Ancef IV preoperatively. COMPLICATIONS: None. SPECIMENS: None. DISPOSITION: Stable to PACU. INDICATIONS FOR PROCEDURE: The patient has been seen and examined in the outpatient orthopedic clinic with regards to her right shoulder pain. She did have a previous right shoulder arthroscopy with biceps tenotomy. There was no cuff tear noted at that time. She has continued to have pain since this procedure. The pain has been worsening over time. She tried and failed conservative treatment of physical therapy and activity modification and steroid injections. Repeat MRI was obtained, which did demonstrate a near full-thickness tear of the supraspinatus tendon. Treatment options were discussed in detail with the patient. As she had failed many months of conservative treatment, a right shoulder arthroscopy with possible rotator cuff [address] [address] OPERATIVE REPORT Name: HSADYCORY Mary Room: [address] Natalio Yao#: [id number] Admission: 03/23/20 Attend Phys: Claudia Mcdermott Discharge: Date of : 63 Report #: [id number] repair was discussed with the patient. The risks, benefits, alternatives, and complications were discussed. The patient wished to proceed with this. DESCRIPTION OF PROCEDURE: The patient was seen and examined in the preoperative holding area. The correct operative extremity was then marked. Written consent was obtained for the procedure. The patient was transferred to the operating room and placed supine on the operating room table. She was given the benefit of general anesthesia. She was then placed in the beach chair position. She was well secured and well padded. The right upper extremity was prepped and draped in the usual sterile fashion. Timeout was performed to verify the correct patient, procedure, and operative extremity and all were in agreement. Next, the posterior-inferior portal was established and the arthroscope was inserted. Diagnostic arthroscopy was performed. There was noted to be some synovitis and erythema throughout the glenohumeral joint. There was some labral fraying. The arthroscopic shaver was inserted and the labrum was debrided. At that time, there was noted to be a near full-thickness articular-sided tear of the supraspinatus tendon. This was marked with a marking stitch and attention was then turned to the subacromial space. Subacromial space was then debrided and the marking stitch was identified. There was noted to be a small full-thickness tear of the supraspinatus. This was debrided of all bursitis and adhesions. The tear was then mobilized. The footprint was prepped with the rasp as well as the arthroscopic shaver. The incision was made to perform a SpeedBridge repair. The medial row was then punched and medial row anchors were inserted in the standard fashion. The Scorpion was then used to pass these medial row suture tapes through the rotator cuff. The lateral row was then placed in the standard fashion. This was noted to have excellent purchase on the rotator cuff as well as appropriate tension. Final arthroscopic images were then taken demonstrating a SpeedBridge configuration with a stable rotator cuff repair. The shoulder was then drained of all fluid. The arthroscopic instruments were removed. The incision was then closed with nylon sutures in a simple interrupted fashion. Sterile dressing was applied. The patient was placed in a sling, awakened from anesthesia, and transferred to the PACU in stable condition. By: 1546 [id number] Renee DO /magali
[~2020-03-23 09:13] MED LIST changes: -NEURONTIN 300M300 M2 PO; -OXYCODONE HCL5 M1 PO; -PERCOCET 5-3251 EACH PO
[2020-03-23 10:31] LABS: HEMATOCRIT 38.8 % (37.0-47.0); HEMOGLOBIN 13.1 gm/dL (12.0-15.0); MCH 29.8 pg (26.0-34.0); MCHC 33.7 g/dL (28.0-37.0); MCV 88.3 fL (80.0-100.0); MPV 8.9 fl. (7.2-11.1); RBC 4.39 mil/uL (4.20-5.00); WBC 5.3 thou/uL (4.0-11.0)
[2020-03-23 11:01] LABS: CALCIUM 8.7 mg/dL (8.5-10.1); CREATININE 0.8 mg/dL (0.6-1.3); POTASSIUM 4.1 mmol/L (3.5-5.1)
[2020-03-23] MEDS ORDERED: PERCOCET 5-3251 EACH PO ×2 (14:45→14:46)
[2020-03-23] MEDS ORDERED: OXYCODONE HCL5 M1 PO (15:03)
[2020-03-23 16:00] VITALS: BP 105/64
--- NOTE | 2020-03-23 17:26 | NUR ---
OVER HERE TO ROOM 107 POST OPERATIVELY ACCOMPANIED BY THE PACU NURSES. SHE IS ALERT AND ORIENTED AND IS HERE FOR MANAGEMENT OF HER CHRONIC PAIN. SHE IS COMPLAINING OF LEFT HIP, KNEE AND NECK PAIN. SHE HAD A BLOCK TO HER RIGHT SHOULDER PRE-OP AND ANOTHER ONE POST-OP AND DENIES PAIN AT THE SURGICAL SITE. SHE DID HAVE A ROTATOR CUFF REPAIR ON THE RIGHT SHOULDER SHE HAS AN IMMOBILIZER IN PLACE TO THAT ARM. HER IS AT THE BEDSIDE. SHE DOES HAVE A DEPENDENCY ON OPIATES AND IS REQUESTING PAIN MEDICATION FREQUENTLY. SHE HAS HAD ALL SHE CAN HAVE FOR NOW. SHE IS EATING SUPPER AND HER VITAL SIGNS ARE STABLE. I JUST MEDICATED HER WITH OXY IR 5. NO DISTRESS NOTED.
--- NOTE | 2020-03-23 17:38 | NUR ---
PATIENT HAS A GLUCOSE MONITOR IN THE LEFT UPPER ARM SHE WANTS TO USE THIS WHILE SHE IS HERE. SHE DOES NOT WANT ANY FINGERSTICKS SINCE SHE HAS THIS. HER GLUCOSE WAS 177 THIS PM AND I WILL PUT A MESSAGE INTO THE DOCTOR FOR INSULIN ORDER.
--- NOTE | 2020-03-23 17:58 | NUR ---
I SENT A MESSAGE TO DR. GRACE TO GET AN ORDER FOR PATIENT TO USE HER BLOOD SUGAR MONITORING DEVICE IN THE LEFT ARM WHILE SHE IS HERE AND FOR A SLIDING SCALE INSULIN ORDER. PATIENT DID NOT BRING HER INSULIN PUMP WITH HER TO THE HOSPITAL.
[2020-03-24] VITALS (8 sets, daily range): BP systolic 94–173; BP diastolic 50–85
--- NOTE | 2020-03-24 05:22 | NUR ---
ASSUMED CARE OF PT AFTER REPORT AT 2330. PT A&OX4. VSS. PHYSICAL ASSESSMENT COMPLETED AND CHARTED. PT ON RA. MAINTAINED IMMOBILIZAER ON THE RIGHT ARM. COMPLAINED OF RIGHT SHOULDER & LEFT HIP PAIN-MED GIVEN PER NOV & HEATING PAD PROVIDED. RELIEF FROM PAIN NOTED. CALL LIGHT WITHIN REACH.
--- NOTE | 2020-03-24 09:17 | NUR ---
PT STATES " I AM NOT GOING HOME TODAY. I AM IN TOO MUCH PAIN. I NEED IV MORPHINE OR A FENTANYL. I ALREADY TRIED TO CALL DR RAMON AND TELL HIM". WILL PAGE DR RAMON AND DISCUSS PAIN CONTROL OPTIONS. PAIN MEDS GIVEN ORDERED PT ASKING ABOUT INSULIN. MED REC UPDATED WITH HOME INSULIN DOSES.
[2020-03-24] MEDS ORDERED: LANTUS SUBQ (09:38)
--- NOTE | 2020-03-24 10:05 | NUR ---
SPOKE TO PT ABOUT PAIN MEDICATION REGIMEN. PT INSISTING ON MORE PAIN MEDS GIVEN. DISCUSSED OPIATE SAFETY AT HOME WITH PT SHE HAS MULTIPLE OPIATE RX AND HOME MEDS. PT STATES SHE HAS NARCAN AT HOME
[2020-03-24] MEDS ORDERED: NEURONTIN 300M300 M2 PO (14:28)
--- NOTE | 2020-03-24 15:00 | NUR ---
PT.VERY DROWSY. DID NOT ASSESS. NOT DISCHARGING TODAY DUE TO PAIN CONTROL. REVIEW OF CHART FROM NOVEMBER ADMISSION SHOWS PT.IS INDEPENDENT WITH ADLS. HAS A HX OF OUTPT.THERAPY AT [facility] HOME HEALTH [facility] OF [facility] AND HX OF SNF AT [facility]. LIVES WITH SPOUSE. HE DOES THE COOKING,CLEANING AND DRIVING. SHE HAS A WALKER,WC AND SCOOTER.
--- NOTE | 2020-03-24 17:27 | NUR ---
ASSUMED CARE OF PATIENT AT APPROX 0730. ALERT AND ORIENTED X4. ASSESSMENT COMPLETED AND CHARTED. VSS ON ROOM AIR. COMPLAINT OF PAIN ADDRESSED WITH ORAL PAIN MEDICATIONS AND LIDOCAINE PATCH. PATIENT VERY CONCERNED ABOUT GETTING MORE PAIN MEDICATION OPTIONS AND CALLING OUT ON A SCHEDULE FOR HER PAIN MEDICATION. PATIENT DOES STATE THAT HER PAIN IS DECREASING FROM A 7.5 TO A 6.5 THIS AFTERNOON. BULKY DRESSING TO LEFT SHOULDER IS CLEAN, DRY AND INTACT LEFT SHOULDER IMMOBILIZER IS IN PLACE. UP WITH ASSIST TO USE THE BATHROOM. FALL PRECAUTIONS IN PLACE. CALL LIGHT WITHIN REACH. HOURLY ROUNDS COMPLETED. WILL CONTINUE WITH PLAN OF CARE.
--- NOTE | 2020-03-25 06:06 | NUR ---
PATIENT SLEPT MOST OF THE NIGHT. PATIENT WAS GIVEN PAIN MEDICINE 3 TIMES THIS SHIFT. PATIENT SHOULD BE DISCHARGED HOME TODAY. WILL CONTINUE TO MONITOR.
[2020-03-25 08:14] VITALS: BP 134/77
--- NOTE | 2020-03-25 12:19 | NUR ---
PT.TO DISCHARGE HOME TODAY. SHE SAID HER WILL COME TO PICK HER UP ABOUT 4-4:30
--- NOTE | 2020-03-25 16:28 | NUR ---
PT DISCHARGED AT 1620 TO HOME WITH BY WHEELCHAIR WITH NURSING STAFF. IV OUT. DRESSING C/D/I. PAIN CONTROLLED. PAPER SCRIPTS AND CARE NOTES GIVEN. PERSONAL ITEMS SENT WITH PT.
== END 2020-03-25 16:30 | disposition home or self-care (01) ==
LOC: M.SUR 09:13 → M.TBA-ER 13:46 → M.ORTHSURG 13:46 → M.SUR 13:53 → M.ORTHSURG 15:35 → M.SUR 17:10 → M.ORTHSURG 03-25 16:30
PROVIDERS: Orthopaedic Surgery; ADMIT Internal Medicine; ATTEND Internal Medicine
DX: M75.101 Unspecified rotator cuff tear or rupture of right shoulder, not specified as traumatic (principal); Z86.73 Personal history of transient ischemic attack (TIA), and cerebral infarction without residual deficits; E11.9 Type 2 diabetes mellitus without complications; F31.9 Bipolar disorder, unspecified; F11.20 Opioid dependence, uncomplicated; G47.00 Insomnia, unspecified; M47.9 Spondylosis, unspecified; M51.36 Other intervertebral disc degeneration, lumbar region; M79.89 Other specified soft tissue disorders; G89.29 Other chronic pain

== ENCOUNTER 2020-07-18 21:29 | Observation (INO) | payer BC, MEDICARE ==
[~2020-07-18] VITALS: Ht 160 cm; Wt 86.6 kg
[~2020-07-18 21:29] MED LIST changes: +NEURONTIN 300M300 M2 PO; +OXYCODONE HCL5 M1 PO; +PERCOCET 5-3251 EACH PO
[2020-07-18 21:38] VITALS: BP 138/79
[2020-07-18 22:17] LABS: CALCIUM 8.3 mg/dL (8.5-10.1); CREATININE 0.8 mg/dL (0.6-1.3)
[2020-07-18 22:19] LABS: ABSOLUTE BASOPHILS 0.1 thou/uL (0.0-0.2); ABSOLUTE EOSINOPHILS 0.2 thou/uL (0.0-0.7); ABSOLUTE LYMPHOCYTES 5.5 thou/uL (0.8-5.3); ABSOLUTE MONOCYTES 0.8 thou/uL (0.0-1.2); ABSOLUTE NEUTROPHILS 4.1 thou/uL (1.6-8.1); BASOPHILS 0.9 %; EOSINOPHILS 2.2 %; HEMATOCRIT 35.7 % (37.0-47.0); HEMOGLOBIN 11.8 gm/dL (12.0-15.0); LYMPHOCYTES 51.7 %; MCH 29.2 pg (26.0-34.0); MCHC 33.1 g/dL (28.0-37.0); MCV 88.3 fL (80.0-100.0); MONOCYTES 7.1 %; MPV 8.2 fl. (7.2-11.1); NUCLEATED RBCS 0 /100WBC; PLATELET COUNT* 250 thou/uL (150-400); POLYS 38.1 %; RBC 4.04 mil/uL (4.20-5.00); RDW-CV 13.7 % (10.5-14.5); WBC 10.7 thou/uL (4.0-11.0)
[2020-07-18 22:20] LABS: POTASSIUM 2.8 mmol/L (3.5-5.1)
[2020-07-18 22:21] LABS: ALBUMIN 3.2 g/dL (3.4-5.0); TOTAL BILIRUBIN 0.5 mg/dL (<0.1-1.0); TOTAL PROTEIN 6.5 g/dL (6.4-8.2)
[2020-07-18 22:29] LABS: URINE BILIRUBIN NEGATIVE (Negative); URINE BLOOD NEGATIVE (Negative); URINE CLARITY CLEAR; URINE COLOR YELLOW; URINE GLUCOSE-RANDOM 3+ (Negative); URINE KETONES NEGATIVE (Negative); URINE LEUKOCYTES-REFLEX 1+ (Negative); URINE NITRITE-REFLEX POSITIVE (Negative); URINE PROTEIN NEGATIVE (Negative); URINE UROBILINOGEN 0.2 E.U./dl (0.2-1.0)
[2020-07-18 22:36] LABS: BACTERIA-REFLEX >30 Many /HPF (None Seen); CRYSTALS None Seen /LPF (None Seen); FINE GRANULAR CASTS 0-3 Few /LPF (None Seen); HYALINE CASTS 0-3 Few /LPF (None Seen); MUCUS 4-6 Moderate strn/LPF (None Seen); SQUAMOUS 4-10 Moderate /LPF (0-3); TRANSITIONAL EPITHEL CELL 0-3 Few /LPF (None Seen); URINE RBC 3-10 Few /HPF (0-2); URINE WBC-REFLEX >25 Many /HPF (0-5); WBC CLUMPS Moderate (None Seen)
[2020-07-19 07:00] VITALS: BP 117/65
[2020-07-19 10:50] VITALS: BP 122/74
[2020-07-19 12:00] VITALS: BP 126/79
[2020-07-19 12:43] LABS: CALCIUM 9.1 mg/dL (8.5-10.1); CREATININE 0.6 mg/dL (0.6-1.3); POTASSIUM 3.7 mmol/L (3.5-5.1)
[2020-07-19 12:47] LABS: MAGNESIUM 1.8 mg/dL (1.8-2.4); PHOSPHORUS* 2.8 mg/dL (2.5-4.9)
--- NOTE | 2020-07-19 12:50 | EKG ---
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: [place] : 1965 Requested By: Juve Nascimento Order Number: [id number] MD: Russ Blackwood Measurements Intervals [place] Rate: 100 P: 38 NE: 138 QRS: 3 QRSD: 95 T: -6 QT: 357 QTc: 461 Interpretive Statements Sinus tachycardia Borderline T abnormalities, diffuse leads Baseline wander in lead(s) V3,V4,V5,V6 Compared to ECG 12/03/2019 19:37:59 T-wave abnormality now present Sinus rhythm no longer present Electronically Signed On 07-19-2020 12:50:41 ASIAN STUDIES PROGRAM CHAIR by Russ Blackwood [email or web address] <ELECTRONICALLY SIGNED> By: Russ Blackwood MD, FACC 07/19/20 1250 35 35 Russ Blackwood MD, FACC /EPI
[2020-07-19 16:00] VITALS: BP 117/71
[2020-07-19 19:43] VITALS: BP 130/74
[2020-07-20 04:00] VITALS: BP 88/46
[2020-07-20 04:22] VITALS: BP 117/68
[2020-07-20 06:20] LABS: CALCIUM 8.2 mg/dL (8.5-10.1); CREATININE 0.8 mg/dL (0.6-1.3); MAGNESIUM 1.7 mg/dL (1.8-2.4); POTASSIUM 4.1 mmol/L (3.5-5.1)
--- NOTE | 2020-07-20 06:27 | NUR ---
PT REPORTS HIP AND SHOULDER PAIN 03/27. TAKING OXY 5 Q6 AND CODEINE Q6 LIKE AT HOME. SHE IS ALERT AND ORIENTED, ROOM AIR, STANDBY ASSIST TO RESTROOM. SHE RECEIVED ALL MEDS SCHEDULED.
[2020-07-20 07:06] LABS: GLYCOHEMOGLOBIN (HGB A1C) 9.5 % (4.8-5.6)
[2020-07-20 08:00] VITALS: BP 92/54
[2020-07-20] MEDS ORDERED: CEFUROXIME250 MG PO (08:39)
--- NOTE | 2020-07-20 09:05 | NUR ---
RECIEVED REPORT AROUND 0715. ASSUMED CARE. IV INTACT LEFT AC. LEFT WRIST. HEART MONITOR ATTACHED AT SR. PT LYING IN BED. PAIN REPORTED AT "4 TO 5" THIS AM. MEDS GIVEN PER NOV. PT IS TO BE DISCHARGED THIS SHIFT. RIDE CANNOT BE HERE UNITL 1400 THIS AFTERNOON. CALL LIGHT WITHIN REACH. WILL CONTINUE TO MONITOR.
[2020-07-20 12:00] VITALS: BP 92/51
[2020-07-20 12:25] VITALS: BP 92/54
--- NOTE | 2020-07-20 13:03 | NUR ---
RECIEVED DISHCARGE ORDERS. GAVE DISCHARGE PACKET TO PT. COMMUNICATED UNDERSTANDING. IV'S TAKEN OUT. HEART MONITOR OFF. PT AWAITING RIDE. CALL LIGHT WITHIN REACH. WILL CONTINUE TO MONITOR
== END 2020-07-20 14:15 | disposition home or self-care (01) ==
LOC: M.ERS 21:29 → M.TBA-ER 23:18 → M.2W 23:18
PROVIDERS: Emergency Medicine Emergency Medical Services; ADMIT Family Medicine; ATTEND Family Medicine
DX: E11.649 Type 2 diabetes mellitus with hypoglycemia without coma (principal); F31.9 Bipolar disorder, unspecified; E66.01 Morbid (severe) obesity due to excess calories; G89.4 Chronic pain syndrome; E87.6 Hypokalemia; N39.0 Urinary tract infection, site not specified; E83.42 Hypomagnesemia; R41.82 Altered mental status, unspecified; G89.29 Other chronic pain; G47.00 Insomnia, unspecified; F11.20 Opioid dependence, uncomplicated; M54.5 Low back pain; Z98.890 Other specified postprocedural states; Z86.73 Personal history of transient ischemic attack (TIA), and cerebral infarction without residual deficits

== ENCOUNTER → 2020-07-28 | Outpatient (CLI) | payer BC ==
[~2020-07-28] MED LIST changes: +CEFUROXIME250 MG PO
== END | disposition home or self-care (01) ==
LOC: M.RAD 12:28
PROVIDERS: ATTEND Orthopaedic Surgery
DX: M25.551 Pain in right hip (principal); M25.552 Pain in left hip; M16.0 Bilateral primary osteoarthritis of hip; Z98.890 Other specified postprocedural states; Z79.899 Other long term (current) drug therapy; Z86.73 Personal history of transient ischemic attack (TIA), and cerebral infarction without residual deficits; Z88.0 Allergy status to penicillin; Z88.8 Allergy status to other drugs, medicaments and biological substances

== ENCOUNTER 2020-09-30 14:18 | Emergency (ER) | payer BC ==
[~2020-09-30] VITALS: Ht 162.6 cm; Wt 79.4 kg
[2020-09-30 15:16] LABS: URINE BILIRUBIN NEGATIVE (Negative); URINE BLOOD NEGATIVE (Negative); URINE CLARITY CLEAR; URINE COLOR YELLOW; URINE GLUCOSE-RANDOM TRACE (Negative); URINE KETONES NEGATIVE (Negative); URINE LEUKOCYTES-REFLEX NEGATIVE (Negative); URINE PROTEIN NEGATIVE (Negative); URINE SPECIFIC GRAVITY 1.015 (1.005-1.030); URINE UROBILINOGEN 0.2 E.U./dl (0.2-1.0)
[2020-09-30 15:18] LABS: URINE NITRITE-REFLEX POSITIVE (Negative)
[2020-09-30 15:31] LABS: MUCUS None Seen strn/LPF (None Seen); SQUAMOUS 4-10 Moderate /LPF (0-3)
[2020-09-30 15:32] LABS: BACTERIA-REFLEX >30 Many /HPF (None Seen); CASTS None Seen /LPF (None Seen); CRYSTALS None Seen /LPF (None Seen); URINE RBC None Seen /HPF (0-2); URINE WBC-REFLEX 0-5 Rare /HPF (0-5)
[2020-09-30 15:56] LABS: ABSOLUTE BASOPHILS 0.1 thou/uL (0.0-0.2); ABSOLUTE EOSINOPHILS 0.2 thou/uL (0.0-0.7); ABSOLUTE LYMPHOCYTES 6.1 thou/uL (0.8-5.3); ABSOLUTE MONOCYTES 0.6 thou/uL (0.0-1.2); ABSOLUTE NEUTROPHILS 4.4 thou/uL (1.6-8.1); BASOPHILS 1.2 %; EOSINOPHILS 1.3 %; HEMATOCRIT 41.9 % (37.0-47.0); HEMOGLOBIN 13.9 gm/dL (12.0-15.0); LYMPHOCYTES 53.2 %; MCH 29.3 pg (26.0-34.0); MCHC 33.2 g/dL (28.0-37.0); MCV 88.1 fL (80.0-100.0); MONOCYTES 5.5 %; MPV 8.3 fl. (7.2-11.1); NUCLEATED RBCS 0 /100WBC; PLATELET COUNT* 301 thou/uL (150-400); POLYS 38.8 %; RBC 4.75 mil/uL (4.20-5.00); RDW-CV 13.8 % (10.5-14.5); WBC 11.4 thou/uL (4.0-11.0)
[2020-09-30 16:03] LABS: CALCIUM 9.8 mg/dL (8.5-10.1); CREATININE 0.7 mg/dL (0.6-1.3); POTASSIUM 3.6 mmol/L (3.5-5.1)
[2020-09-30 16:06] LABS: INFLUENZA A ANTIGEN Negative (Negative); INFLUENZA B ANTIGEN Negative (Negative)
[2020-09-30 16:07] LABS: INR 0.9; PROTIME 10.1 Seconds (9.20-11.50)
[2020-09-30 16:08] LABS: ALBUMIN 3.9 g/dL (3.4-5.0); TOTAL PROTEIN 7.6 g/dL (6.4-8.2)
--- NOTE | 2020-09-30 16:36 | EKG ---
[place] [address] ELECTROCARDIOGRAM REPORT Name: CORY CARUSO Room: 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: : 1965 Requested By: Roxanne Coronel Order Number: [id number] MD: Prieto Harding Measurements Intervals [place] Rate: 81 P: 22 MD: 139 QRS: 16 QRSD: 96 T: 3 QT: 384 QTc: 446 Interpretive Statements Sinus rhythm Borderline T abnormalities, anterior leads Compared to ECG 07/18/2020 21:36:41 Sinus tachycardia no longer present T-wave abnormality still present Electronically Signed On 09-30-2020 16:36:08 BLACKTOP SPREADER by Prieto Harding [email or web address] <ELECTRONICALLY SIGNED> By: Prieto Harding MD, [facility] 09/30/20 1636 1521 1521 Prieto Harding MD, [facility] /EPI
[2020-09-30] MEDS ORDERED: CEFDINIR300 MG PO (18:02)
[2020-09-30 19:45] VITALS: BP 148/68
== END 2020-09-30 19:45 | disposition home or self-care (01) ==
LOC: M.ERS 14:18
PROVIDERS: Nurse Practitioner Family
DX: N39.0 Urinary tract infection, site not specified (principal); R51.9 Headache, unspecified; E11.9 Type 2 diabetes mellitus without complications; Z86.73 Personal history of transient ischemic attack (TIA), and cerebral infarction without residual deficits; Z79.4 Long term (current) use of insulin; Z79.899 Other long term (current) drug therapy; Z88.0 Allergy status to penicillin; Z88.1 Allergy status to other antibiotic agents; Z88.5 Allergy status to narcotic agent; Z88.8 Allergy status to other drugs, medicaments and biological substances; Z91.030 Bee allergy status; Z20.828 Contact with and (suspected) exposure to other viral communicable diseases

== ENCOUNTER 2020-10-20 19:22 | Emergency (ER) | payer MEDICARE, BC ==
[~2020-10-20] VITALS: Ht 162.6 cm; Wt 79.4 kg
[~2020-10-20 19:22] MED LIST changes: +CEFDINIR300 MG PO
[2020-10-20] MEDS ORDERED: CARDURA1 MG PO (19:46)
[2020-10-20 20:17] LABS: URINE BILIRUBIN NEGATIVE (Negative); URINE BLOOD NEGATIVE (Negative); URINE CLARITY CLEAR; URINE COLOR YELLOW; URINE GLUCOSE-RANDOM 3+ (Negative); URINE KETONES NEGATIVE (Negative); URINE LEUKOCYTES-REFLEX NEGATIVE (Negative); URINE NITRITE-REFLEX POSITIVE (Negative); URINE PROTEIN NEGATIVE (Negative); URINE SPECIFIC GRAVITY 1.015 (1.005-1.030); URINE UROBILINOGEN 0.2 E.U./dl (0.2-1.0)
[2020-10-20 20:25] LABS: ABSOLUTE BASOPHILS 0.1 thou/uL (0.0-0.2); ABSOLUTE LYMPHOCYTES 1.5 thou/uL (0.8-5.3); ABSOLUTE MONOCYTES 0.3 thou/uL (0.0-1.2); ABSOLUTE NEUTROPHILS 10.3 thou/uL (1.6-8.1); BASOPHILS 0.7 %; EOSINOPHILS 0.1 %; HEMATOCRIT 42.9 % (37.0-47.0); HEMOGLOBIN 14.1 gm/dL (12.0-15.0); LYMPHOCYTES 12.6 %; MCH 29.3 pg (26.0-34.0); MCHC 32.9 g/dL (28.0-37.0); MCV 88.9 fL (80.0-100.0); MONOCYTES 2.3 %; MPV 8.3 fl. (7.2-11.1); NUCLEATED RBCS 0 /100WBC; PLATELET COUNT* 307 thou/uL (150-400); POLYS 84.3 %; RBC 4.82 mil/uL (4.20-5.00); RDW-CV 14.3 % (10.5-14.5); WBC 12.2 thou/uL (4.0-11.0)
[2020-10-20 20:26] LABS: BACTERIA-REFLEX >30 Many /HPF (None Seen); CASTS None Seen /LPF (None Seen); CRYSTALS None Seen /LPF (None Seen); SQUAMOUS 0-3 Few /LPF (0-3); URINE RBC 0-2 Rare /HPF (0-2); URINE WBC-REFLEX 0-5 Rare /HPF (0-5)
[2020-10-20 20:32] LABS: CALCIUM 9.6 mg/dL (8.5-10.1); CREATININE 0.9 mg/dL (0.6-1.3); POTASSIUM 3.8 mmol/L (3.5-5.1)
[2020-10-20 20:37] LABS: INR 0.9
[2020-10-20 20:40] LABS: APTT 20.5 Seconds (25.0-31.3)
[2020-10-20 20:44] LABS: ALBUMIN 3.9 g/dL (3.4-5.0); TOTAL BILIRUBIN 0.8 mg/dL (<0.1-1.0); TOTAL PROTEIN 8.1 g/dL (6.4-8.2)
[2020-10-20] MEDS ORDERED: BACTRIM DS TAB1 EACH PO (21:33)
[2020-10-20] MEDS ORDERED: TESSALON PERLE100 MG PO (21:33)
[2020-10-20 21:50] VITALS: BP 157/92
--- NOTE | 2020-10-21 10:39 | EKG ---
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: : 1965 Requested By: Roxanne Coronel Order Number: [id number] MD: Malcolm Sneed Measurements Intervals [place] Rate: 89 P: 35 IA: 133 QRS: 9 QRSD: 96 T: 15 QT: 369 QTc: 449 Interpretive Statements Sinus rhythm nonspecific st segment changes Compared to ECG 09/30/2020 15:21:25 no change Electronically Signed On 10-21-2020 10:39:39 SWAGER OPERATOR by Malcolm Sneed [email or web address] <ELECTRONICALLY SIGNED> By: Malcolm Sneed MD, [facility] 10/21/20 1039 20 20 Malcolm Sneed MD, [facility] /EPI
== END 2020-10-20 21:50 | disposition home or self-care (01) ==
LOC: M.ERS 19:22
PROVIDERS: Nurse Practitioner Family
DX: N39.0 Urinary tract infection, site not specified (principal); J98.8 Other specified respiratory disorders; Z20.828 Contact with and (suspected) exposure to other viral communicable diseases; G89.29 Other chronic pain; M54.2 Cervicalgia; Z88.1 Allergy status to other antibiotic agents; Z88.0 Allergy status to penicillin; Z88.5 Allergy status to narcotic agent; Z88.8 Allergy status to other drugs, medicaments and biological substances; Z86.73 Personal history of transient ischemic attack (TIA), and cerebral infarction without residual deficits; Z79.4 Long term (current) use of insulin

== ENCOUNTER → 2020-11-27 | Outpatient (CLI) | payer BC, MEDICARE ==
[~2020-11-27] MED LIST changes: +CARDURA1 MG PO
== END ==
LOC: M.ULTRA 14:18
PROVIDERS: ATTEND Internal Medicine
DX: N83.201 Unspecified ovarian cyst, right side (principal); D25.9 Leiomyoma of uterus, unspecified; N95.1 Menopausal and female climacteric states

== ENCOUNTER → 2020-12-21 | Outpatient (CLI) | payer BC, MEDICARE | LOC: M.RAD 10:01 | PROVIDERS: ATTEND Internal Medicine | DX: Z12.31 Encounter for screening mammogram for malignant neoplasm of breast (principal) ==

== ENCOUNTER → 2020-12-23 | Outpatient (CLI) | payer BC, MEDICARE | LOC: M.ULTRA 10:30 | PROVIDERS: ATTEND Internal Medicine | DX: N63.10 Unspecified lump in the right breast, unspecified quadrant (principal); N63.20 Unspecified lump in the left breast, unspecified quadrant ==

== ENCOUNTER → 2020-12-29 | Outpatient (CLI) | payer BC ==
[~2020-12-29] MED LIST changes: +ALPRAZOLAM XR3 MG PO; +B-12 DOTS500 MCG PO; +BENADRYL ALLERG25 MG PO; +CULTURELLE KID1 EAC1 PO; +DILTIAZEM ER180 M2 PO; +FLORINEF ACETA0.1 MG PO; +GLYCOLAX119 GM PO; +LIPITOR 10 MG10 M1 PO; +MELOXICAM7.5 MG PO; +MULTIPLE VITAM1 EAC4 PO; +NORCO5 PO; +PREMARIN0.3 MG PO; +SYMBICORT160 MCG/4. INH; +VASCEPA1 GM PO
== END | disposition home or self-care (01) ==
LOC: M.RAD 09:00
PROVIDERS: ATTEND Orthopaedic Surgery
DX: M25.551 Pain in right hip (principal); M25.552 Pain in left hip; M16.0 Bilateral primary osteoarthritis of hip; G89.29 Other chronic pain; E11.9 Type 2 diabetes mellitus without complications; G47.00 Insomnia, unspecified; F41.9 Anxiety disorder, unspecified; F31.9 Bipolar disorder, unspecified; M79.7 Fibromyalgia; G35 Multiple sclerosis; Z98.890 Other specified postprocedural states; Z79.899 Other long term (current) drug therapy; Z86.73 Personal history of transient ischemic attack (TIA), and cerebral infarction without residual deficits; Z79.891 Long term (current) use of opiate analgesic; Z88.0 Allergy status to penicillin; Z88.8 Allergy status to other drugs, medicaments and biological substances

== ENCOUNTER 2021-01-01 15:49 | Inpatient (IN) | payer BC ==
[~2021-01-01] VITALS: Ht 162.6 cm; Wt 83.6 kg
[~2021-01-01 15:49] MED LIST changes: -ALPRAZOLAM XR3 MG PO; -B-12 DOTS500 MCG PO; -BENADRYL ALLERG25 MG PO; -CULTURELLE KID1 EAC1 PO; -DILTIAZEM ER180 M2 PO; -FLORINEF ACETA0.1 MG PO; -GLYCOLAX119 GM PO; -LIPITOR 10 MG10 M1 PO; -MELOXICAM7.5 MG PO; -MULTIPLE VITAM1 EAC4 PO; -NORCO5 PO; -PREMARIN0.3 MG PO; -SYMBICORT160 MCG/4. INH; -VASCEPA1 GM PO
[2021-01-01] MEDS ORDERED: MELOXICAM7.5 MG PO (16:10)
[2021-01-01] MEDS ORDERED: DESYREL150 MG PO (16:12)
[2021-01-01] MEDS ORDERED: VENTOLIN HFA 1818 GM INH (16:36)
[2021-01-01] MEDS ORDERED: ALPRAZOLAM XR3 MG PO (16:37)
[2021-01-01] MEDS ORDERED: LIPITOR 10 MG10 M1 PO (16:37)
[2021-01-01] MEDS ORDERED: SYMBICORT160 MCG/4. INH (16:38)
[2021-01-01] MEDS ORDERED: B-12 DOTS500 MCG PO (16:39)
[2021-01-01] MEDS ORDERED: BENADRYL ALLERG25 MG PO (16:40)
[2021-01-01] MEDS ORDERED: DILTIAZEM ER180 M2 PO (16:40)
[2021-01-01] MEDS ORDERED: PREMARIN0.3 MG PO (16:41)
[2021-01-01] MEDS ORDERED: FLORINEF ACETA0.1 MG PO (16:41)
[2021-01-01] MEDS ORDERED: VASCEPA1 GM PO (16:42)
[2021-01-01] MEDS ORDERED: NORCO5 PO (16:42)
[2021-01-01] MEDS ORDERED: MULTIPLE VITAM1 EAC4 PO (16:43)
[2021-01-01] MEDS ORDERED: CULTURELLE KID1 EAC1 PO (16:43)
[2021-01-01] MEDS ORDERED: GLYCOLAX119 GM PO (16:43)
[2021-01-01 16:55] LABS: ABSOLUTE BASOPHILS 0.1 thou/uL (0.0-0.2); ABSOLUTE EOSINOPHILS 0.1 thou/uL (0.0-0.7); ABSOLUTE LYMPHOCYTES 3.2 thou/uL (0.8-5.3); ABSOLUTE MONOCYTES 0.7 thou/uL (0.0-1.2); ABSOLUTE NEUTROPHILS 7.9 thou/uL (1.6-8.1); BASOPHILS 0.7 %; EOSINOPHILS 0.4 %; HEMOGLOBIN 14.4 gm/dL (12.0-15.0); LYMPHOCYTES 26.5 %; MCH 28.6 pg (26.0-34.0); MCHC 32.8 g/dL (28.0-37.0); MCV 87.3 fL (80.0-100.0); MONOCYTES 6.2 %; MPV 8.2 fl. (7.2-11.1); NUCLEATED RBCS 0 /100WBC; PLATELET COUNT* 283 thou/uL (150-400); POLYS 66.2 %; RBC 5.04 mil/uL (4.20-5.00); RDW-CV 13.7 % (10.5-14.5); WBC 11.9 thou/uL (4.0-11.0)
[2021-01-01 17:07] LABS: CALCIUM 8.3 mg/dL (8.5-10.1); CREATININE 0.7 mg/dL (0.6-1.3)
[2021-01-01 17:11] LABS: ALBUMIN 3.3 g/dL (3.4-5.0); TOTAL BILIRUBIN 1.2 mg/dL (<0.1-1.0); TOTAL PROTEIN 7.1 g/dL (6.4-8.2)
[2021-01-01 21:03] VITALS: BP 144/76
[2021-01-01] MEDS ORDERED: LANTUS SUBQ (22:49)
[2021-01-01 22:54] LABS: URINE BILIRUBIN NEGATIVE (Negative); URINE BLOOD NEGATIVE (Negative); URINE CLARITY CLEAR; URINE COLOR YELLOW; URINE GLUCOSE-RANDOM 3+ (Negative); URINE KETONES 1+ (Negative); URINE LEUKOCYTES-REFLEX NEGATIVE (Negative); URINE NITRITE-REFLEX NEGATIVE (Negative); URINE PROTEIN NEGATIVE (Negative); URINE SPECIFIC GRAVITY 1.025 (1.005-1.030); URINE UROBILINOGEN 0.2 E.U./dl (0.2-1.0)
[2021-01-02 00:39] VITALS: BP 119/64
[2021-01-02 05:25] VITALS: BP 112/64
--- NOTE | 2021-01-02 07:57 | NUR ---
PT ADMITTED TO ROOM 210 DURING GASOLINE ATTENDANT; VSS, A+OX4, ROOM AIR, SINUS RHYTHM, IV FLUIDS RUNNING. SHE IS ABLE TO COMMUNICATE HER NEEDS TO STAFF EFFECTIVELY. CURRENT PAIN MEDICATION REGIMEN HAS BEEN ADEQUATE FOR CONTROLLING HER PAIN UP TO THIS TIME. NEUROLOGY CONSULTED.
[2021-01-02] MEDS ORDERED: PREDNISONE 10 M10 MG PO (09:47)
[2021-01-02 11:12] LABS: ALBUMIN 2.8 g/dL (3.4-5.0); ALKALINE PHOSPHATASE 74 U/L (46-116); ANION GAP 7 mmol/L (7-16); BUN 23 mg/dL (7-18); CALCIUM 7.9 mg/dL (8.5-10.1); CHLORIDE 99 mmol/L (98-107); CHOLESTEROL 194 mg/dL (<200); CO2 27 mmol/L (21-32); CREATININE 0.7 mg/dL (0.6-1.3); GLUCOSE 327 mg/dL (70-99); HDL CHOLESTEROL 72 mg/dL (>40); LDL CHOLESTEROL 97 mg/dL (<100); POTASSIUM 3.7 mmol/L (3.5-5.1); SERUM ASSESSMENT Clear; SGOT 23 U/L (15-37); SGPT 30 U/L (30-65); SODIUM 133 mmol/L (136-145); TC:HDL 2.7 Ratio (Not establshd); TOTAL BILIRUBIN 0.9 mg/dL (<0.1-1.0); TOTAL PROTEIN 6.3 g/dL (6.4-8.2); TRIGLYCERIDE 128 mg/dL (<150); VLDL 26 mg/dL (<40)
[2021-01-02 12:00] VITALS: BP 110/63
--- NOTE | 2021-01-02 12:58 | CON ---
[address] [address] CONSULTATION Name: CORY CHIN Room: [address] IN M.R.#: [id number] Admission: 01/01/21 Attend Phys: Kenisha Chin MD Discharge: Date of : 63 Report #: [id number] THIS REPORT FOR: cc: Valeriy Bello MD, Meng MD [place], Roxane S. DO ~ NEUROLOGY CONSULT HISTORY OF PRESENT ILLNESS: The patient is a 55-year-old female who yesterday was sitting on the floor when she noted weakness in her left lower extremity. She has been sitting cross-legged going to her mother's things. When she went to stand up from the chair, she noticed that her foot would not work properly. Apparently, she had foot drop in 1996 that resolved on its own after 4-6 months. The patient states she also had some pain on the top of her foot. The patient's history is complicated by diagnosis of multiple sclerosis for which she receives no treatment and frontotemporal dementia for which she had been going to [facility], but no longer goes because she said they never do anything for her. They were seeing her every 3 months, but all she was doing was giving them a copay. PAST MEDICAL HISTORY: Stroke, C. difficile, bipolar disorder, diabetes frontotemporal dementia, multiple sclerosis, fibromyalgia. PAST SURGICAL HISTORY: Fecal transplant in 2014, shoulder repair, bilateral cataract surgery, retina surgery, left knee surgery. MEDICATIONS: At home include insulin pump, meloxicam, trazodone, alprazolam, atorvastatin, Symbicort inhaler, B12, diltiazem, estrogen, Florinef, Vascepa, Anderson, sertraline, Adderall, lithium, Welchol, tramadol, gabapentin. ALLERGIES: INCLUDE ERYTHROMYCIN, PENICILLIN, AMOXICILLIN, BEE STING, CIPROFLOXACIN, HYDROMORPHONE, WASP STINGS, PROCHLORPERAZINE AND CEFUROXIME. PHYSICAL EXAMINATION: VITAL SIGNS: Temperature 36.7, pulse rate 87, respiratory rate 17, blood pressure 112/64, bedside pulse oximetry 95%. NEUROLOGIC: Cranial nerves 2-12 are grossly intact. Motor exam demonstrates symmetrical strength in all 4 extremities with the exception of the left lower extremity where the patient has weakness with dorsiflexion of the great toe, the subsequent toes and ankle dorsiflexion. She appears to have normal ankle eversion with plantar flexion. Reflexes are symmetrical throughout. Plantar responses are flexor. There is no evidence of dysmetria. LABORATORY DATA: Hematology: White blood cell count 11.9, hemoglobin 14.4, [place] [address] CONSULTATION Name: CORY CHIN Room: [address] IN ..#: [id number] Admission: 01/01/21 Attend Phys: Kenisha Chin MD Discharge: Date of : 63 Report #: [id number] hematocrit 44, MCV 87.3, platelet count 283,000. Urinalysis, 1+ ketones, 3+ glucose. Comprehensive metabolic panel: Sodium 132, potassium 4, chloride 99, carbon dioxide 26, BUN 25, creatinine 0.7, glucose 530. Liver functions normal. IMAGING: CT scan of the head unremarkable. CT of the lumbar spine unremarkable. 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 This may even be from her diagnosis of diabetes mellitus. She also has a history of frontotemporal dementia for which there is no treatment. At this point, I am concerned about giving the patient a low-dose prednisone taper because she received a steroid injection yesterday and now her blood sugar is in the 500s, so she may not be a good candidate for even a low-dose prednisone taper. I will leave that to your judgment and then the next best thing for her would be a referral to outpatient physical therapy. She asked for a foot brace, but I told her that that can also impede her improvement and it is best that she use the leg as much as possible and then if it does not improve over time, perhaps in a few months then she might want a foot brace, but I do not think this is the time for that. I also told her she should not sit with her legs crossed. I also recommended that she see her neurologist at from time to time. I thank you for your kind referral of the patient. <ELECTRONICALLY SIGNED> By: Myrna Hsieh DO 01/02/21 1258 0853 [id number] Hsieh DO /nt
[2021-01-02 13:23] VITALS: BP 110/63
--- NOTE | 2021-01-02 14:17 | NUR ---
ASSUMED PT CARE AT 0730. PT IS BRYON Kim&LUIS EDUARDO. ASSESSMENT COMPLETED AND PT VOICES NO CONCERNS AT THIS TIME. ALL MEDICATIONS ADMINISTERED ORDERED. SAFETY MEASURES IN PLACE AND PT VERBALIZES UNDERSTANDING. ACCU CHECK 295 INSULIN GIVEN ORDERED. NEW ORDERS TO DISCHARGE PT TO HOME. DISCHARGE ORDERS RECIEVED AND REVIEWED WITH PT. PT VERBALIZES UNDERSTANDING. PT DISCHARGED WITH SPOUSE VIA WC AT APPROX 1400, ACCOMPANIED BY NURSING STAFF.
--- NOTE | 2021-01-02 15:09 | NUR ---
NOT PT WAS DISCHARGED FROM HOSPITAL BEFORE P.T. EVAL AND TX ORDERS COULD BE INITIATED.
[2021-01-03 05:36] LABS: GLYCOHEMOGLOBIN (HGB A1C) 10.8 % (4.8-5.6)
--- NOTE | 2021-01-03 12:25 | EKG ---
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
== END 2021-01-02 13:30 | disposition home or self-care (01) | DRG 74 ==
LOC: M.ERS 15:49 → M.TBA-ER 18:16 → M.2W 20:55
PROVIDERS: Internal Medicine; Physician Assistant; ADMIT Internal Medicine; ATTEND Internal Medicine
DX: E11.40 Type 2 diabetes mellitus with diabetic neuropathy, unspecified (principal); Z86.73 Personal history of transient ischemic attack (TIA), and cerebral infarction without residual deficits; G89.29 Other chronic pain; M25.569 Pain in unspecified knee; M25.559 Pain in unspecified hip; F31.9 Bipolar disorder, unspecified; F41.9 Anxiety disorder, unspecified; G47.00 Insomnia, unspecified; E11.65 Type 2 diabetes mellitus with hyperglycemia; G35 Multiple sclerosis; F03.90 Unspecified dementia, unspecified severity, without behavioral disturbance, psychotic disturbance, mood disturbance, and anxiety; F41.1 Generalized anxiety disorder; M54.5 Low back pain; F43.10 Post-traumatic stress disorder, unspecified; M79.7 Fibromyalgia; Z20.822 Contact with and (suspected) exposure to COVID-19; Z88.6 Allergy status to analgesic agent; Z88.1 Allergy status to other antibiotic agents; Z88.0 Allergy status to penicillin; Z88.8 Allergy status to other drugs, medicaments and biological substances

== ENCOUNTER → 2021-01-13 | Outpatient (CLI) | payer BC ==
[~2021-01-13] MED LIST changes: +ALPRAZOLAM XR3 MG PO; +B-12 DOTS500 MCG PO; +BENADRYL ALLERG25 MG PO; +CULTURELLE KID1 EAC1 PO; +DILTIAZEM ER180 M2 PO; +FLORINEF ACETA0.1 MG PO; +GLYCOLAX119 GM PO; +LIPITOR 10 MG10 M1 PO; +MELOXICAM7.5 MG PO; +MULTIPLE VITAM1 EAC4 PO; +NORCO5 PO; +PREMARIN0.3 MG PO; +SYMBICORT160 MCG/4. INH; +VASCEPA1 GM PO
== END ==
LOC: M.PC 08:41
PROVIDERS: ATTEND Physical Medicine & Rehabilitation
DX: M47.814 Spondylosis without myelopathy or radiculopathy, thoracic region (principal); M54.16 Radiculopathy, lumbar region; M48.02 Spinal stenosis, cervical region; M47.812 Spondylosis without myelopathy or radiculopathy, cervical region

== ENCOUNTER → 2021-02-01 | Outpatient (CLI) | payer BC | LOC: M.LAB 11:22 | PROVIDERS: ATTEND Physical Medicine & Rehabilitation | DX: Z01.812 Encounter for preprocedural laboratory examination (principal); Z20.822 Contact with and (suspected) exposure to COVID-19 ==

== ENCOUNTER 2021-02-26 15:16 | Emergency (ER) | payer BC ==
[~2021-02-26] VITALS: Ht 162.6 cm; Wt 81.7 kg
[2021-02-26] MEDS ORDERED: KEFLEX250 MG PO (15:26)
[2021-02-26 17:45] LABS: ABSOLUTE BASOPHILS 0.1 thou/uL (0.0-0.2); ABSOLUTE EOSINOPHILS 0.2 thou/uL (0.0-0.7); ABSOLUTE LYMPHOCYTES 2.6 thou/uL (0.8-5.3); ABSOLUTE MONOCYTES 0.8 thou/uL (0.0-1.2); ABSOLUTE NEUTROPHILS 5.8 thou/uL (1.6-8.1); EOSINOPHILS 1.6 %; HEMATOCRIT 41.3 % (37.0-47.0); HEMOGLOBIN 13.7 gm/dL (12.0-15.0); LYMPHOCYTES 27.8 %; MCH 29.6 pg (26.0-34.0); MCHC 33.1 g/dL (28.0-37.0); MCV 89.5 fL (80.0-100.0); MONOCYTES 8.7 %; MPV 8.2 fl. (7.2-11.1); NUCLEATED RBCS 0 /100WBC; PLATELET COUNT* 251 thou/uL (150-400); POLYS 60.9 %; RBC 4.61 mil/uL (4.20-5.00); RDW-CV 14.6 % (10.5-14.5); WBC 9.5 thou/uL (4.0-11.0)
[2021-02-26 17:53] LABS: CALCIUM 8.9 mg/dL (8.5-10.1); CREATININE 0.8 mg/dL (0.6-1.3); POTASSIUM 3.7 mmol/L (3.5-5.1)
[2021-02-26 17:57] LABS: ALBUMIN 3.3 g/dL (3.4-5.0); TOTAL BILIRUBIN 0.9 mg/dL (<0.1-1.0); TOTAL PROTEIN 7.6 g/dL (6.4-8.2)
[2021-02-26 19:17] LABS: URINE BILIRUBIN NEGATIVE (Negative); URINE BLOOD NEGATIVE (Negative); URINE CLARITY CLEAR; URINE COLOR YELLOW; URINE GLUCOSE-RANDOM 3+ (Negative); URINE KETONES NEGATIVE (Negative); URINE LEUKOCYTES-REFLEX NEGATIVE (Negative); URINE NITRITE-REFLEX NEGATIVE (Negative); URINE PROTEIN NEGATIVE (Negative); URINE UROBILINOGEN 0.2 E.U./dl (0.2-1.0)
[2021-02-26] MEDS ORDERED: MEDROLDOSEPACK PO (19:22)
[2021-02-26] MEDS ORDERED: PROMETHAZINE-D473 M1 PO (19:28)
[2021-02-26 20:28] VITALS: BP 156/88
== END 2021-02-26 20:30 | disposition home or self-care (01) ==
LOC: M.ERS 15:16
PROVIDERS: Physician Assistant
DX: K52.9 Noninfective gastroenteritis and colitis, unspecified (principal); Z20.822 Contact with and (suspected) exposure to COVID-19; J30.9 Allergic rhinitis, unspecified; B34.9 Viral infection, unspecified; E11.65 Type 2 diabetes mellitus with hyperglycemia; Z79.4 Long term (current) use of insulin; Z88.1 Allergy status to other antibiotic agents; Z88.0 Allergy status to penicillin; Z91.030 Bee allergy status

== ENCOUNTER → 2021-03-11 | Outpatient (CLI) | payer BC ==
[~2021-03-11] MED LIST changes: +KEFLEX250 MG PO; +PROMETHAZINE-D473 M1 PO
[2021-03-11 12:12] LABS: CREATININE 0.9 mg/dL (0.6-1.3)
== END ==
LOC: M.CT 02-25 13:00
PROVIDERS: ATTEND Internal Medicine
DX: K76.0 Fatty (change of) liver, not elsewhere classified (principal); I70.0 Atherosclerosis of aorta; I70.8 Atherosclerosis of other arteries; R14.0 Abdominal distension (gaseous); Z90.49 Acquired absence of other specified parts of digestive tract

== ENCOUNTER → 2021-05-18 | Outpatient (CLI) | payer BC | END | disposition home or self-care (01) | LOC: M.RAD 12:20 | PROVIDERS: ATTEND Orthopaedic Surgery | DX: M70.61 Trochanteric bursitis, right hip (principal); M16.12 Unilateral primary osteoarthritis, left hip; M25.552 Pain in left hip; M25.551 Pain in right hip; E11.9 Type 2 diabetes mellitus without complications; F41.9 Anxiety disorder, unspecified; Z98.890 Other specified postprocedural states; Z79.899 Other long term (current) drug therapy; Z86.73 Personal history of transient ischemic attack (TIA), and cerebral infarction without residual deficits; Z88.0 Allergy status to penicillin; Z88.8 Allergy status to other drugs, medicaments and biological substances ==

== ENCOUNTER → 2021-05-19 | Outpatient (CLI) | payer BC | LOC: M.PC 09:20 | PROVIDERS: ATTEND Physical Medicine & Rehabilitation | DX: M47.26 Other spondylosis with radiculopathy, lumbar region (principal); M16.0 Bilateral primary osteoarthritis of hip; M54.5 Low back pain ==

== ENCOUNTER → 2021-06-11 | Outpatient (CLI) | payer BC | LOC: M.LAB 12:46 | PROVIDERS: ATTEND Physical Medicine & Rehabilitation | DX: Z01.812 Encounter for preprocedural laboratory examination (principal); Z20.822 Contact with and (suspected) exposure to COVID-19 ==

== ENCOUNTER → 2021-07-07 | Outpatient (CLI) | payer BC | LOC: M.PC 10:07 | PROVIDERS: ATTEND Physical Medicine & Rehabilitation | DX: M25.551 Pain in right hip (principal); M25.552 Pain in left hip; M47.26 Other spondylosis with radiculopathy, lumbar region; M51.16 Intervertebral disc disorders with radiculopathy, lumbar region; M12.88 Other specific arthropathies, not elsewhere classified, other specified site; M75.42 Impingement syndrome of left shoulder; M75.41 Impingement syndrome of right shoulder; M47.22 Other spondylosis with radiculopathy, cervical region; M50.123 Cervical disc disorder at C6-C7 level with radiculopathy; M47.24 Other spondylosis with radiculopathy, thoracic region; E11.9 Type 2 diabetes mellitus without complications; Z88.0 Allergy status to penicillin; Z88.8 Allergy status to other drugs, medicaments and biological substances; Z88.1 Allergy status to other antibiotic agents; Z90.49 Acquired absence of other specified parts of digestive tract ==

== ENCOUNTER → 2021-07-14 | Outpatient (CLI) | payer BC | END | disposition home or self-care (01) | LOC: M.PC 10:00 | PROVIDERS: ATTEND Physical Medicine & Rehabilitation | DX: M54.59 Other low back pain (principal); M25.551 Pain in right hip; E11.9 Type 2 diabetes mellitus without complications; J45.909 Unspecified asthma, uncomplicated; M19.90 Unspecified osteoarthritis, unspecified site; Z98.890 Other specified postprocedural states; Z79.899 Other long term (current) drug therapy; Z86.73 Personal history of transient ischemic attack (TIA), and cerebral infarction without residual deficits; Z90.49 Acquired absence of other specified parts of digestive tract; Z90.710 Acquired absence of both cervix and uterus; Z88.0 Allergy status to penicillin; Z88.8 Allergy status to other drugs, medicaments and biological substances ==

== ENCOUNTER → 2021-08-02 | Outpatient (CLI) | payer BC | END | disposition home or self-care (01) | LOC: M.PC 08:51 | PROVIDERS: ATTEND Physical Medicine & Rehabilitation | DX: M51.16 Intervertebral disc disorders with radiculopathy, lumbar region (principal); M47.26 Other spondylosis with radiculopathy, lumbar region; M53.3 Sacrococcygeal disorders, not elsewhere classified; M47.22 Other spondylosis with radiculopathy, cervical region; E11.9 Type 2 diabetes mellitus without complications; J45.909 Unspecified asthma, uncomplicated; M19.90 Unspecified osteoarthritis, unspecified site; Z98.890 Other specified postprocedural states; Z79.899 Other long term (current) drug therapy; Z90.49 Acquired absence of other specified parts of digestive tract; Z86.73 Personal history of transient ischemic attack (TIA), and cerebral infarction without residual deficits; Z88.0 Allergy status to penicillin; Z88.8 Allergy status to other drugs, medicaments and biological substances ==

== ENCOUNTER → 2021-08-16 | Outpatient (CLI) | payer BC | LOC: M.PC 08:47 | PROVIDERS: ATTEND Physical Medicine & Rehabilitation | DX: M25.551 Pain in right hip (principal); M25.552 Pain in left hip; M47.26 Other spondylosis with radiculopathy, lumbar region; M51.16 Intervertebral disc disorders with radiculopathy, lumbar region; M12.88 Other specific arthropathies, not elsewhere classified, other specified site; M75.42 Impingement syndrome of left shoulder; M75.41 Impingement syndrome of right shoulder; M47.24 Other spondylosis with radiculopathy, thoracic region; M47.22 Other spondylosis with radiculopathy, cervical region; M50.123 Cervical disc disorder at C6-C7 level with radiculopathy; Z88.0 Allergy status to penicillin; Z88.1 Allergy status to other antibiotic agents; Z88.8 Allergy status to other drugs, medicaments and biological substances ==

== ENCOUNTER → 2021-08-18 | Outpatient (CLI) | payer BC | END | disposition home or self-care (01) | LOC: M.RAD 12:34 | PROVIDERS: ATTEND Orthopaedic Surgery | DX: M25.551 Pain in right hip (principal); M25.552 Pain in left hip; E11.9 Type 2 diabetes mellitus without complications; Z98.890 Other specified postprocedural states; Z79.899 Other long term (current) drug therapy; Z86.73 Personal history of transient ischemic attack (TIA), and cerebral infarction without residual deficits; Z88.0 Allergy status to penicillin; Z88.8 Allergy status to other drugs, medicaments and biological substances ==

== ENCOUNTER → 2021-09-03 | Outpatient (CLI) | payer BC | LOC: M.LAB 14:38 | PROVIDERS: ATTEND Physical Medicine & Rehabilitation | DX: Z01.812 Encounter for preprocedural laboratory examination (principal); Z20.822 Contact with and (suspected) exposure to COVID-19 ==

== ENCOUNTER → 2021-09-27 | Outpatient (CLI) | payer BC | LOC: M.RAD 08:45 | PROVIDERS: ATTEND Orthopaedic Surgery | DX: M25.552 Pain in left hip (principal); F41.9 Anxiety disorder, unspecified; E11.9 Type 2 diabetes mellitus without complications; Z87.440 Personal history of urinary (tract) infections; Z86.73 Personal history of transient ischemic attack (TIA), and cerebral infarction without residual deficits; Z79.899 Other long term (current) drug therapy; Z98.890 Other specified postprocedural states ==

== ENCOUNTER 2021-11-02 21:04 | Emergency (ER) | payer BC ==
[~2021-11-02] VITALS: Ht 162.6 cm; Wt 88.5 kg
[2021-11-02] MEDS ORDERED: WELLBUTRIN XL150 MG PO (21:33)
[2021-11-02 22:09] VITALS: BP 127/67
== END 2021-11-02 22:09 | disposition home or self-care (01) ==
LOC: M.ERS 21:04
DX: M79.672 Pain in left foot (principal); Z71.1 Person with feared health complaint in whom no diagnosis is made; M79.662 Pain in left lower leg; M79.89 Other specified soft tissue disorders; F31.9 Bipolar disorder, unspecified; E11.9 Type 2 diabetes mellitus without complications; F41.9 Anxiety disorder, unspecified; M79.7 Fibromyalgia; Z86.711 Personal history of pulmonary embolism; Z96.652 Presence of left artificial knee joint; Z86.73 Personal history of transient ischemic attack (TIA), and cerebral infarction without residual deficits; Z87.42 Personal history of other diseases of the female genital tract; Z79.899 Other long term (current) drug therapy; Z79.4 Long term (current) use of insulin; Z88.1 Allergy status to other antibiotic agents; Z88.0 Allergy status to penicillin; Z91.030 Bee allergy status; Z91.048 Other nonmedicinal substance allergy status